=== PATIENT | female | born 1935 | race Caucasian/White ===

== ENCOUNTER 2017-04-19 09:00 | Inpatient (IN) | payer MEDICARE, OTHER ==
[2017-04-19] VITALS (19 sets, daily range): BP systolic 138–177; BP diastolic 64–85; PULSE 59–69; RESP 13–25; Ht 165.1 cm; Wt 68.6 kg
[~2017-04-19] VITALS: Ht 165.1 cm; Wt 68.6 kg
[~2017-04-19 09:00] MED LIST: ASCO-288 PO; ASPI81TA50 PO; BENA40TA41 PO; CARV6.2579 PO; CHOL100062 PO; CIPR500T4 PO; CRAN400C PO; CYAN500T46 PO; DOCU-144 PO; DOCU-159 PO; FERR-55 PO; FOLI-49 PO; GLIP-95 PO; MEMA10TA16 PO; MEVA40 PO; MTF1000T PO; MULT1TAB59 PO; ONDA4TAB35 PO; PANT40TA4 PO; PRAM0.1224 PO; PYRI50TA14 PO; RIVA3CAP2 PO; SITA100T8 PO; TRAM50TA2 PO; UBID100C24 PO
[2017-04-19] MEDS ORDERED: LIDOCAINE 1% (MDV) 20 ML INJ ONE (10:55)
[2017-04-19] MEDS ORDERED: HEPARIN 1000 UNITS/ML 10 ML INJ ONE (10:55)
[2017-04-19] MEDS ORDERED: FENTAnyl 50 MCG/ML VIAL ONE (10:56)
[2017-04-19] MEDS ORDERED: VERAPAMIL 5 MG INJ ONE (10:57)
[2017-04-19] MEDS ORDERED: MIDAZOLAM 1 MG/ML 2 ML INJ ONE (10:57)
[2017-04-19] MEDS ORDERED: NITROGLYCERIN (IC) 100 MCG/ML INJ ONE (10:57)
[2017-04-19] MEDS ORDERED: SOD CHLORIDE 0.9% 1,000 ML IV SCH (11:42)
--- NOTE | 2017-04-19 11:56 | OPR ---
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 Procedures Performed: 1)Left heart catheterization with selective left and right coronary angiography. Pre-operative Diagnosis:NSTEMI Post-operative Diagnosis:same, 3 vessel CAD with ostial LM Indications: Description of Procedure: After informed consent, the patient was brought to the cardiac catheterization lab. The procedure site was prepped and draped in usual manner. The patient was premedicated with versed 0.5mg. 2 mL lidocaine was injected into the left wrist. Next using the posterior wall technique, the 6/5 mauritian sheath was inserted into the left radial artery. Next using the JL3.0 and JR4, selective angiography of the left and right coronary arteries were obtained. The pigtail was then advanced into the ventricle and hemodynamics obtained. Left ventricle angiography was not obtained. Next all equipment was removed and hemostasis was obtained by TR band. Findings: Anatomy/Hemodynamics: Heavily calcified coronary arteries Left main:ostial 50-60%, distal 30-40% LAD: mild plaquing 20-30% Diagonal:luminal irregularities Circumflex:ostial 95-99%, mid 30% Obtuse marginal: RCA:mid calcified eccentric 95% PDA:luminal irregularities PLV:luminal irregularities LV angiography: not done due to mild CKD LV-Ao: no gradient LVEDP: 5 mmHg Contrast used: 60mL Fluoroscopy time:3.3 min Estimated blood loss<10 mL. Specimen: none Grafts/implants: none Complications: none Assessment: NSTEMI CAD with significant ostial LM, ostial Cx and mid RCA stenosis requiring CABG DM HTN CKD: Cr 1.2 Plan: -admit to tele (no ICU beds) -continue ASA, lipitor -metoprolol -check echo -Dr. Zurita will evaluate for CABG HANG MILLER Apr 19, 2017 11:56
--- NOTE | 2017-04-19 12:07 | CONS ---
Date/Time of Note Date/Time of Note DATE: 04/19/17 TIME: 12:06 Assessment/Plan Assessment/Plan Chief Complaint/Hosp Course NSTEMI CAD with significant ostial LM, ostial Cx and mid RCA stenosis requiring CABG DM HTN CKD: Cr 1.2 -admit to tele (no ICU beds) -continue ASA, lipitor -metoprolol -check echo -Dr. Zurita will evaluate for CABG Problems: Consultation Date/Type/Reason Admit Date/Time Initial Consult Date 24 HR Interval Summary Free Text/Dictation S/p cardiac cath. No issues. No chest pain. Exam/Review of Systems Vital Signs Vitals Vital Signs Date Time Temp Pulse Resp B/P Pulse Ox O2 Delivery O2 Flow Rate FiO2 04/19/17 09:21 99.1 62 14 153/71 95 Room Air Exam Constitutional: alert, oriented Psych: no complaints Head: atraumatic, normocephalic Eyes: nl conjunctiva ENMT: nl external ears & nose Neck: supple, No jvd Respiratory: clear to auscultation Cardiovascular: regular rate and rhythm, systolic murmur (2/6 DEBRA), No edema Gastrointestinal: non-tender, soft, No distended Neurological: nl mental status, nl speech Medications Medications Current Medications Miscellaneous Information HOLD all METFORMIN ... ONCE ONCE XX ; Start 04/19/17 at 12:00; Stop 04/19/17 at 12:01 Sodium Chloride (NS) 1,000 ml @ 75 mls/hr [id number] IV ; Start 04/19/17 at 11:42 ; Stop 04/19/17 at 16:41 Aspirin (Aspirin) 81 mg DAILY PO ; Start 04/20/17 at 09:00 Atorvastatin Calcium (Lipitor) 40 mg HS PO ; Start 04/19/17 at 21:00 Metoprolol Tartrate (Lopressor) 25 mg BID PO ; Start 04/19/17 at 21:00 BRENT SINHA Apr 19, 2017 12:07
[2017-04-19] MEDS ORDERED: ONDANSETRON (ODT) 4 MG TAB ODT PRN (13:00)
--- NOTE | 2017-04-19 14:19 | RADRPT ---
PROCEDURE: US Carotids. CLINICAL INDICATION: Preop coronary artery bypass graft TECHNIQUE: Multiple sonographic of the carotid bifurcation region and vertebral arteries were obta ined utilizing rodríguez scale, duplex and color-flow imaging. The images were reviewed on a PACS worksta tion. COMPARISON: None FINDINGS: Evaluation of the right carotid bifurcation region reveals mild calcific atherosclerotic disease. Evaluation of the left carotid bifurcation region reveals mild calcific atherosclerotic disease. There is antegrade flow within the vertebral arteries bilaterally. RIGHT CAROTID MEASUREMENTS: Common Carotid [id number] (cm/sec) Internal Carotid Artery - [id number] (cm/sec) Internal Carotid Artery - mid75 (cm/sec) Internal Carotid Artery - [id number] (cm/sec) Internal Carotid/Common Carotid0.9 LEFT CAROTID MEASUREMENTS: Common Carotid Artery 97 (cm/sec) Internal Carotid Artery - proximal 84 (cm/sec) Internal Carotid Artery - mid 107 (cm/sec) Internal Carotid Artery - distal 125 (cm/sec) Internal Carotid/Common Carotid 1.5 IMPRESSION: 1. No evidence of a significant stenosis of the right internal carotid artery. 2. Moderate stenosis ( 50 - 69% ) of the left internal carotid artery. 3. Normal antegrade flow in the vertebral arteries bilaterally. Measurement of carotid stenosis is based on peak systolic and diastolic velocity parameters that cor relate to the residual internal carotid diameter with [place] Symptomatic Carotid Endarterect chuck Trial (NASCET) based stenosis levels. Normal ( < 50% )- ICA peak systolic velocity < 125 cm/sec, ICA / CCA ratio < 2.0 Moderate stenosis ( 50 - 69% )- ICA peak systolic velocity 125 - 230 cm/sec, ICA / CCA ratio 2.0 - 4.0 Severe stenosis ( >70% )- ICA peak systolic velocity > 230 cm/sec, ICA / CCA ratio > 4.0 RPTAT:AAJJ Physician Stella Date Time Electronically viewed and signed by Physician Stella on 04/19/2017 14:18 /
[2017-04-19] MEDS ORDERED: DEXTROSE 50% 50 ML SYRINGE IV PRN ×2 (15:00)
[2017-04-19] MEDS ORDERED: GLUCOSE GEL 15 GRAM TUBE PO PRN ×2 (15:00)
[2017-04-19] MEDS ORDERED: GLUCOSE GEL 15 GRAM TUBE BUCCAL PRN (15:00)
[2017-04-19] MEDS ORDERED: GLUCAGON 1 MG INJ IM PRN (15:00)
[2017-04-19 16:13] LABS: BASOPHILS % 0.3 % (0.0-2.0); EOSINOPHILS # 0.2 10^3/ul (0.0-0.5); EOSINOPHILS % 2.9 % (0.0-7.0); HEMATOCRIT 29.9 % (37.0-47.0); HEMOGLOBIN 9.6 g/dl (12.0-16.0); LYMPHOCYTES # 2.1 10^3/ul (0.8-2.9); LYMPHOCYTES % 30.4 % (15.0-51.0); MEAN CORPUSCULAR HEMOGLOBIN 33.2 pg (29.0-33.0); MEAN CORPUSCULAR HGB CONC 32.1 g/dl (32.0-37.0); MEAN CORPUSCULAR VOLUME 103.5 fl (82.0-101.0); MEAN PLATELET VOLUME 10.4 fl (7.4-10.4); MONOCYTE # 0.6 10^3/ul (0.3-0.9); MONOCYTES % 9.3 % (0.0-11.0); NEUTROPHIL # 3.9 10^3/ul (1.6-7.5); NEUTROPHILS % 56.8 % (39.0-77.0); PLATELET COUNT 193 10^3/UL (140-415); RED BLOOD COUNT 2.89 10^6/ul (4.20-5.40); RED CELL DISTRIBUTION WIDTH 13.2 % (11.5-14.5); WHITE BLOOD COUNT 6.8 10^3/ul (4.8-10.8)
[2017-04-19 16:35] LABS: CALCIUM 8.7 mg/dl (8.4-10.2); CREATININE 0.82 mg/dl (0.44-1.00); POTASSIUM 4.2 mmol/L (3.5-5.1)
[2017-04-19] MEDS: INSULIN ASPART [NOVOLOG] 3 ML PEN SC SCH ×2 (16:49→21:00)
--- NOTE | 2017-04-19 16:53 | CONS ---
Date/Time of Note Date/Time of Note DATE: 04/19/17 TIME: 16:49 Assessment/Plan Assessment/Plan Additional Assessment/Plan 82 year old frail lady with dementia and very calcified coronaries. She does not ambulate much either. Considering her age and demential and very calcified vessels I would recommend medical management. Thank you for the referral. Consultation Date/Type/Reason Admit Date/Time Date of Consultation: Apr 19, 2017 Reason for Consultation evaluate for cabg Referring Provider: BRENT SINHA Hx of Present Illness 82 year old female with dementia, admitted with chest pain and NSTEMI. Had cath today showing LM stenosis and 3V CAD. Asked to see regarding CABG Subjective hx not possible: pt non-verbal Psychological: no complaints Social History Smoking Status: Former smoker Exam/Review of Systems Vital Signs Vitals Vital Signs Date Time Temp Pulse Resp B/P Pulse Ox O2 Delivery O2 Flow Rate FiO2 04/19/17 16:11 60 04/19/17 14:57 97.6 18 165/71 98 Room Air Exam frail 82 year old Constitutional: oriented, No alert, No distress, No frail, No non-verbal, No obese, No other, No well developed Head: No atraumatic, No hematomas, No lacerations, No normocephalic, No other Eyes: No EOMI, No PERRL, No fundi, disc, No icteric, No nl conjunctiva, No nl lids, No nl sclera, No other ENMT: No intubated, No mucosa pink and moist, No nl external ears & nose, No nl lips & teeth, No nl nasal mucosa & septum, No other, No tympanic membranes Neck: No bruits, No jvd, No masses, No non-tender, No nuchal rigidity, No other , No supple, No thyromegaly Respiratory: No clear to auscultation, No congested cough, No crackles/rales, No diminished breath sounds, No intercostal retraction, No labored breathing, No normal air movement, No other, No respirations, No tactile fremitus, No wheezing Cardiovascular: No S3, No S4, No bruits, No diastolic murmur, No edema, No gallop, No irregular rhythm, No jugular venous distention (JVD), No murmurs/ extra sounds, No nl pulses, No other, No regular rate and rhythm, No rub, No systolic murmur Gastrointestinal: No ascites, No bowel sounds, No distended, No firm, No hepatomegaly, No mass, No nl liver, spleen, No non-tender, No other, No rebound or guarding, No soft, No splenomegaly, No surgical scars, No tender Musculoskeletal: No joint tenderness, No muscle tone, No muscle weakness, No nl extremities to inspection, No nl gait and stance, No other, No range of motion, No spine non-tender, No swelling Extremities: No calf tenderness, No clubbing, No cyanosis, No edema, No normal pulses, No other, No palpable cord, No pitting pedal edema, No tenderness Neurological: No RF MICROWAVE ENGINEER II-XII intact, No DTR's symmetric, No confused, No focal weakness, No lethargic, No nl mental status, No nl speech, No nl strength, No numbness, No other, No reflexes, No unresponsive Skin: No diaphoresis, No ecchymosis, No laceration, No nl turgor, No other, No puncture, No rash or lesions Lymph: No enlarged, No nl lymph nodes, No nontender, No other Results Result Diagram: 04/19/17 1549 04/19/17 1549 Results 24 hrs Laboratory Tests Test 04/19/17 12:48 04/19/17 15:49 Bedside Glucose 150 White Blood Count 6.8 Red Blood Count 2.89 L Hemoglobin 9.6 L Hematocrit 29.9 L Mean Corpuscular Volume 103.5 H Mean Corpuscular Hemoglobin 33.2 H Mean Corpuscular Hemoglobin Concent 32.1 Red Cell Distribution Width 13.2 Platelet Count 193 Mean Platelet Volume 10.4 # Neutrophils % 56.8 Lymphocytes % 30.4 Monocytes % 9.3 Eosinophils % 2.9 Basophils % 0.3 Nucleated Red Blood Cells % 0.0 Neutrophils # 3.9 Lymphocytes # 2.1 Monocytes # 0.6 Eosinophils # 0.2 Basophils # 0.0 Nucleated Red Blood Cells # 0.0 Sodium Level 139 Potassium Level 4.2 Chloride Level 107 Carbon Dioxide Level 26 Anion Gap 10 Blood Urea Nitrogen 16 Creatinine 0.82 Glucose Level 118 Calcium Level 8.7 Medications Medications Current Medications Aspirin (Aspirin) 81 mg DAILY PO ; Start 04/20/17 at 09:00 Atorvastatin Calcium (Lipitor) 40 mg HS PO ; Start 04/19/17 at 21:00 Metoprolol Tartrate (Lopressor) 25 mg BID PO ; Start 04/19/17 at 21:00 Diagnostic Test (Pha) (Accu-Chek) 1 ea 02 XX ; Start 04/20/17 at 02:00 Ascorbic Acid (Vitamin C) 500 mg DAILY PO ; Start 04/20/17 at 09:00 Cholecalciferol (Vitamin D) 2,000 unit DAILY PO ; Start 04/20/17 at 09:00 Cyanocobalamin (Vitamin B12) 1,000 mcg DAILY PO ; Start 04/20/17 at 09:00 Docusate Sodium (Colace) 100 mg DAILY PO ; Start 04/20/17 at 09:00 Ferrous Sulfate (Ferrous Sulfate (Ec)) 325 mg TID PO ; Start 04/19/17 at 21:00 Folic Acid (Folic Acid) 1 mg DAILY PO ; Start 04/20/17 at 09:00 Memantine (Namenda) 10 mg BID PO ; Start 04/19/17 at 21:00 Multivitamins Therapeutic (Theragran) 1 tab DAILY PO ; Start 04/20/17 at 09:00 Ondansetron HCl (Zofran Odt) 4 mg Q4H PRN ODT NAUSEA AND/OR VOMITING; Start at 13:00 Pantoprazole (Protonix Tab) 40 mg BID@06,18 PO ; Start 04/19/17 at 18:00 Pramipexole (Mirapex) 0.125 mg TID PO ; Start 04/19/17 at 21:00 Pyridoxine HCl (Vitamin B6) 50 mg DAILY PO ; Start 04/20/17 at 09:00 Rivastigmine Tartrate (Exelon) 3 mg BID PO ; Start 04/19/17 at 21:00 Tramadol HCl (Ultram) 50 mg Q8H PRN PO PAIN; Start 04/19/17 at 13:00 Linagliptin (Tradjenta) 5 mg DAILY PO ; Start 04/20/17 at 09:00 Miscellaneous Information 1 ea NOTE XX ; Start 04/19/17 at 15:00 Glucose (Glutose) 15 gm Q15M PRN PO DECREASED GLUCOSE; Start 04/19/17 at 15:00 Glucose (Glutose) 22.5 gm Q15M PRN PO DECREASED GLUCOSE; Start 04/19/17 at 15: 00 Dextrose (D50w Syringe) 25 ml Q15M PRN IV DECREASED GLUCOSE; Start 04/19/17 at 15:00 Dextrose (D50w Syringe) 50 ml Q15M PRN IV DECREASED GLUCOSE; Start 04/19/17 at 15:00 Glucagon (Glucagen) 1 mg Q15M PRN IM DECREASED GLUCOSE; Start 04/19/17 at 15:00 Glucose (Glutose) 15 gm Q15M PRN BUCCAL DECREASED GLUCOSE; Start 04/19/17 at 15 :00 EMILY TORREZ MD Apr 19, 2017 16:52
[2017-04-19 17:46] LABS: ADD UMIC YES; UR ASCORBIC ACID NEGATIVE (NEGATIVE); UR BACTERIA MODERATE /HPF (NONE SEEN); UR BILIRUBIN (Dip) NEGATIVE (NEGATIVE); UR BLOOD (Dip) 1+ mg/dL (NEGATIVE); UR CLARITY CLOUDY (CLEAR); UR COLOR YELLOW (YELLOW); UR GLUCOSE (Dip) NEGATIVE (NEGATIVE); UR KETONES (Dip) NEGATIVE (NEGATIVE); UR LEUKOCYTE ESTERASE (Dip) 3+ Leu/ul (NEGATIVE); UR NITRITE (Dip) NEGATIVE (NEGATIVE); UR RBC 15 /HPF (0-5); UR SPECIFIC GRAVITY (Dip) 1.018 (1.003-1.030); UR TOTAL PROTEIN (Dip) 1+ mg/dl (NEGATIVE); UR UROBILINOGEN (Dip) NEGATIVE (NEGATIVE)
--- NOTE | 2017-04-19 18:32 | HP ---
DATE OF ADMISSION: 04/19/2017 CHIEF COMPLAINT: Chest pain. HISTORY OF PRESENT ILLNESS: This is an 82-year-old female with a past medical history of coronary a rtery disease status post PCI, history of hypertension, diabetes, COPD, who presented to [facility] Emergency Room with chest pain. The patient had chest pain described left-sided, severe with occasional radiation. The patient had a chest x-ray which showed no acute findings. She was s ubsequently transferred to [facility] to undergo cardiac catheterization. Cardiac catheterization showed significant lesions in the left main in the mid RCA. The patient had no int ervention performed and is pending evaluation by Dr. Lambert for CABG. Upon my evaluation of the patient at this time, the patient is currently stable. No fevers, chills, nausea, vomiting. PAST MEDICAL HISTORY: History of coronary artery disease, diabetes, hypertension, COPD. FAMILY HISTORY: Noncontributory. SOCIAL HISTORY: Does not drink, smoke or do drugs actively. MEDICATIONS: The patient's medication reviewed. PAST SURGICAL HISTORY: Status post PCI. ALLERGIES: NONE. MEDICATIONS: Have been reviewed and reconciled. REVIEW OF SYSTEMS: A 14-point review of systems was conducted. Pertinent positives in HPI, otherwi se negative. PHYSICAL EXAMINATION: VITAL SIGNS: Blood pressure 147/82, respirations 14, pulse 62, temperature 98.6. HEENT: Head is normocephalic. NECK: Supple. HEART: Regular rate. LUNGS: Show diminished breath sounds at base. ABDOMEN: Soft, nontender to palpation without rebound or guarding. EXTREMITIES: Negative for clubbing, cyanosis, edema. DERMATOLOGIC: No rashes. MUSCULOSKELETAL: No joint effusions. NEUROLOGIC: No change in exam. MEDICATIONS: The patient's medications have been reviewed. LABORATORY DATA: Pending. ASSESSMENT AND PLAN: This is an 82-year-old female: 1. Coronary artery disease status post cardiac catheterization. The patient has significant lesion s of the left main. Pending CT surgery evaluation by Dr. Zurita. We will otherwise continue current medical management. 2. Diabetes. Continue Accu-Cheks and sliding-scale insulin. 3. Hypertension. Continue current blood pressure regimen. 4. History of chronic obstructive pulmonary disease. Continue to monitor. We will give nebulizers as needed. 5. Cognitive decline, dementia. Continue Namenda. 6. Exelon patch. 7. Anemia. Continue to monitor hemoglobin and hematocrit levels. Continue ferrous sulfate. 8. Chronic kidney disease. Continue current treatment plan, supportive care, renally dose all meds . Time spent was 25 minutes [id number] time with the patient. The patient is FULL CODE. Dictated By: JAQUI FERRER/IVETTE Conf#: [id number] DID#: [id number]
--- NOTE | 2017-04-19 18:36 | RADRPT ---
Echocardiogram Report Patient Name: CRISTOBAL ARAUJO Gender: Female Date: 1935 Study Date: 19-Apr-2017 Dance Coach: Karie PARRISH Location: PACU Ref. Physician: BRENT MILLER Quality: Adequate Procedures: Transthoracic echocardiogram with complete 2D, M-Mode, and doppler examination. Indications: NSTEMI. 2D/M Mode Doppler Measurement Value Normal Ranges Measurement Value Normal Ranges LVIDd 2D 3.3 3.5 - 5.6 cm AV Peak Addison 1.5 m/sec LVIDs 2D 2.3 2.1 - 4.1 cm AV Peak PG 9.0 mmHg FS 2D 31.0 % LVOT Peak Addison 1.0 m/sec LVPWd 2D 1.3 0.6 - 1.1 cm LVOT Peak PG 4.0 mmHg IVSd 2D 1.3 0.6 - 1.1 cm MV E Peak Addison 0.5 m/sec IVS/LVPW 2D 1.0 MV A Peak Addison 0.9 m/sec AoR Diam 2D 2.3 2.0 - 3.7 cm MV E/A 0.5 LA/Ao 2D 1 0 - 1 MV Decel Time 285 msec EDV 2D 37.6 cm3 MV E/A 0.5 ESV 2D 12.3 cm3 LA Dimen 2D 3.1 2.3 - 4.0 cm Findings Left Ventricle: Normal left ventricular systolic function. Normal left ventricular cavity size. Mild concentric left ventricular hypertrophy. Ejection fraction is visually estimated at 55 %. Tissue Doppler/Mitral Doppler indices are consistent with impaired relaxation (Stage I diastolic dysfunction). Right Ventricle: Normal right ventricular size. Normal right ventricular systolic function. Left Atrium: There is mild enlargement of left atrium. Right Atrium: The right atrium is normal in size. Mitral Valve: Mild mitral annular calcification. Trace mitral regurgitation. Aortic Valve: No significant aortic stenosis or insufficiency. Aortic cusps appear mildly calcified. Trace aortic valve regurgitation. Tricuspid Valve: Normal appearance of the tricuspid valve. Unable to obtain RVSP due to minimal presence of tricuspid regurgitation. There is trace tricuspid regurgitation. Pulmonic Valve: Pulmonic valve not well visualized. There is trace pulmonic regurgitation. Pericardium: Normal pericardium with no significant pericardial effusion. Aorta: Normal aortic root. IVC: Normal size and normal respiratory collapse consistent with normal right atrial pressure. Conclusions 1.Normal left ventricular systolic function. Normal left ventricular cavity size. Mild concentric left ventricular hypertrophy. Ejection fraction is visually estimated at 55 %. Tissue Doppler/Mitral Doppler indices are consistent with impaired relaxation (Stage I diastolic dysfunction). 2.No significant valvular stenosis or regurgitation seen. 3.Unable to obtain RVSP due to minimal presence of tricuspid regurgitation. There is trace tricuspid regurgitation. Normal size and normal respiratory collapse consistent with normal right atrial pressure. Electronically Signed By: Brent Miller 19-Apr-2017 18:35:59 -0700 Patient Name: CRISTOBAL ARAUJO Study Date: 19-Apr-2017 [id number]
[2017-04-19] MEDS: PANTOPRAZOLE (EC) 40 MG TAB PO SCH (19:09)
[2017-04-19] MEDS: MEMANTINE 10 MG TAB PO SCH (22:15)
[2017-04-19] MEDS: METOPROLOL 25 MG TAB PO SCH (22:15)
[2017-04-19] MEDS: PRAMIPEXOLE 0.125 MG TAB PO SCH (22:15)
[2017-04-19] MEDS: FERROUS SULFATE (EC) 325 MG TAB PO SCH (22:15)
[2017-04-19] MEDS: ATORVASTATIN 40 MG TAB PO SCH (22:15)
[2017-04-19] MEDS: RIVASTIGMINE 1.5 MG CAP PO SCH (22:16)
[2017-04-19] MEDS: traMADol 50 MG TAB PO PRN (22:20)
[2017-04-20] VITALS (11 sets, daily range): BP systolic 136–166; BP diastolic 63–70; PULSE 59–64; RESP 17–19
[2017-04-20] MEDS: ACCU-CHEK XX SCH (02:00)
[2017-04-20] MEDS: PANTOPRAZOLE (EC) 40 MG TAB PO SCH ×2 (05:20→18:26)
[2017-04-20 07:38] LABS: BASOPHILS % 0.4 % (0.0-2.0); EOSINOPHILS # 0.2 10^3/ul (0.0-0.5); EOSINOPHILS % 3.1 % (0.0-7.0); HEMATOCRIT 28.6 % (37.0-47.0); HEMOGLOBIN 9.4 g/dl (12.0-16.0); LYMPHOCYTES # 2.2 10^3/ul (0.8-2.9); LYMPHOCYTES % 28.1 % (15.0-51.0); MEAN CORPUSCULAR HEMOGLOBIN 33.7 pg (29.0-33.0); MEAN CORPUSCULAR HGB CONC 32.9 g/dl (32.0-37.0); MEAN CORPUSCULAR VOLUME 102.5 fl (82.0-101.0); MEAN PLATELET VOLUME 10.3 fl (7.4-10.4); MONOCYTE # 1.1 10^3/ul (0.3-0.9); MONOCYTES % 13.4 % (0.0-11.0); NEUTROPHIL # 4.3 10^3/ul (1.6-7.5); NEUTROPHILS % 54.9 % (39.0-77.0); PLATELET COUNT 181 10^3/UL (140-415); RED BLOOD COUNT 2.79 10^6/ul (4.20-5.40); RED CELL DISTRIBUTION WIDTH 13.2 % (11.5-14.5); WHITE BLOOD COUNT 7.8 10^3/ul (4.8-10.8)
--- NOTE | 2017-04-20 08:02 | PN ---
Date/Time of Note Date/Time of Note DATE: 04/20/17 TIME: 08:00 Assessment/Plan VTE Prophylaxis VTE Prophylaxis Intervention: SCD's Lines/Catheters IV Catheter Type (from Nrs): Saline Lock Assessment/Plan Assessment/Plan NSTEMI CAD with significant ostial LM, ostial Cx and mid RCA stenosis requiring CABG DM HTN CKD: Cr 1.2 ANEMAI OBS -evaluated by CTS > reccomended medical therapy -will add ACEI -will discuss with her daughter -most sousa will treat medcailly and only consider high risk PCI with assist device at a tertiary facility -possible d/c planning in AM if all stable Subjective 24 Hr Interval Summary Free Text/Dictation The patient with no chest pain and no sob - appreciate dr sin's care Exam/Review of Systems Vital Signs Vitals Vital Signs Date Time Temp Pulse Resp B/P Pulse Ox O2 Delivery O2 Flow Rate FiO2 04/20/17 07:21 98.9 65 18 143/65 97 04/19/17 14:57 Room Air Intake and Output 04/19/17 04/19/17 04/20/17 15:00 23:00 07:00 Intake Total 100 ml 700 ml Output Total 450 ml Balance -350 ml 700 ml Results Result Diagram: 04/20/17 0718 04/19/17 1549 Results 24 hrs Laboratory Tests Test 04/19/17 12:48 04/19/17 15:49 04/19/17 16:00 04/19/17 16:48 Bedside Glucose 150 108 White Blood Count 6.8 Red Blood Count 2.89 L Hemoglobin 9.6 L Hematocrit 29.9 L Mean Corpuscular Volume 103.5 H Mean Corpuscular Hemoglobin 33.2 H Mean Corpuscular Hemoglobin Concent 32.1 Red Cell Distribution Width 13.2 Platelet Count 193 Mean Platelet Volume 10.4 # Neutrophils % 56.8 Lymphocytes % 30.4 Monocytes % 9.3 Eosinophils % 2.9 Basophils % 0.3 Nucleated Red Blood Cells % 0.0 Neutrophils # 3.9 Lymphocytes # 2.1 Monocytes # 0.6 Eosinophils # 0.2 Basophils # 0.0 Nucleated Red Blood Cells # 0.0 Sodium Level 139 Potassium Level 4.2 Chloride Level 107 Carbon Dioxide Level 26 Anion Gap 10 Blood Urea Nitrogen 16 Creatinine 0.82 Glucose Level 118 Calcium Level 8.7 Urine Color YELLOW Urine Clarity CLOUDY A Urine pH 6.0 Urine Specific Dorena 1.018 Urine Ketones NEGATIVE Urine Nitrite NEGATIVE Urine Bilirubin NEGATIVE Urine Urobilinogen NEGATIVE Urine Leukocyte Esterase 3+ H Urine Microscopic RBC 15 H Urine Microscopic WBC 149 H Urine Bacteria MODERATE Urine Hemoglobin 1+ H Urine Random Creatinine 23.63 Urine Random Sodium 123 H Urine Glucose NEGATIVE Urine Total Protein 46.0 H Test 04/19/17 22:12 04/20/17 07:18 Bedside Glucose 175 White Blood Count 7.8 Red Blood Count 2.79 L Hemoglobin 9.4 L Hematocrit 28.6 L Mean Corpuscular Volume 102.5 H Mean Corpuscular Hemoglobin 33.7 H Mean Corpuscular Hemoglobin Concent 32.9 Red Cell Distribution Width 13.2 Platelet Count 181 Mean Platelet Volume 10.3 Neutrophils % 54.9 Lymphocytes % 28.1 Monocytes % 13.4 H Eosinophils % 3.1 Basophils % 0.4 Nucleated Red Blood Cells % 0.0 Neutrophils # 4.3 Lymphocytes # 2.2 Monocytes # 1.1 H Eosinophils # 0.2 Basophils # 0.0 Nucleated Red Blood Cells # 0.0 Medications Medications Current Medications Aspirin (Aspirin) 81 mg DAILY PO ; Start 04/20/17 at 09:00 Atorvastatin Calcium (Lipitor) 40 mg HS PO Last administered on 04/19/17 22:15 ; Admin Dose 40 MG; Start 04/19/17 at 21:00 Metoprolol Tartrate (Lopressor) 25 mg BID PO Last administered on 04/19/17 22: 15; Admin Dose 25 MG; Start 04/19/17 at 21:00 Diagnostic Test (Pha) (Accu-Chek) 1 ea 02 XX ; Start 04/20/17 at 02:00 Ascorbic Acid (Vitamin C) 500 mg DAILY PO ; Start 04/20/17 at 09:00 Cholecalciferol (Vitamin D) 2,000 unit DAILY PO ; Start 04/20/17 at 09:00 Cyanocobalamin (Vitamin B12) 1,000 mcg DAILY PO ; Start 04/20/17 at 09:00 Docusate Sodium (Colace) 100 mg DAILY PO ; Start 04/20/17 at 09:00 Ferrous Sulfate (Ferrous Sulfate (Ec)) 325 mg TID PO Last administered on 22:15; Admin Dose 325 MG; Start 04/19/17 at 21:00 Folic Acid (Folic Acid) 1 mg DAILY PO ; Start 04/20/17 at 09:00 Memantine (Namenda) 10 mg BID PO Last administered on 04/19/17 22:15; Admin Dose 10 MG; Start 04/19/17 at 21:00 Multivitamins Therapeutic (Theragran) 1 tab DAILY PO ; Start 04/20/17 at 09:00 Ondansetron HCl (Zofran Odt) 4 mg Q4H PRN ODT NAUSEA AND/OR VOMITING; Start at 13:00 Pantoprazole (Protonix Tab) 40 mg BID@,18 PO Last administered on 04/20/17 05:20; Admin Dose 40 MG; Start 04/19/17 at 18:00 Pramipexole (Mirapex) 0.125 mg TID PO Last administered on 04/19/17 22:15; Admin Dose 0.125 MG; Start 04/19/17 at 21:00 Pyridoxine HCl (Vitamin B6) 50 mg DAILY PO ; Start 04/20/17 at 09:00 Rivastigmine Tartrate (Exelon) 3 mg BID PO Last administered on 04/19/17 22:16 ; Admin Dose 3 MG; Start 04/19/17 at 21:00 Tramadol HCl (Ultram) 50 mg Q8H PRN PO PAIN Last administered on 04/19/17 22: 20; Admin Dose 50 MG; Start 04/19/17 at 13:00 Linagliptin (Tradjenta) 5 mg DAILY PO ; Start 04/20/17 at 09:00 Miscellaneous Information 1 ea NOTE XX ; Start 04/19/17 at 15:00 Glucose (Glutose) 15 gm Q15M PRN PO DECREASED GLUCOSE; Start 04/19/17 at 15:00 Glucose (Glutose) 22.5 gm Q15M PRN PO DECREASED GLUCOSE; Start 04/19/17 at 15: 00 Dextrose (D50w Syringe) 25 ml Q15M PRN IV DECREASED GLUCOSE; Start 04/19/17 at 15:00 Dextrose (D50w Syringe) 50 ml Q15M PRN IV DECREASED GLUCOSE; Start 04/19/17 at 15:00 Glucagon (Glucagen) 1 mg Q15M PRN IM DECREASED GLUCOSE; Start 04/19/17 at 15:00 Glucose (Glutose) 15 gm Q15M PRN BUCCAL DECREASED GLUCOSE; Start 04/19/17 at 15 :00 Lisinopril (Zestril) 5 mg DAILY PO ; Start 04/20/17 at 09:00; Status UNV REUBEN GERONIMO MD Apr 20, 2017 08:02
[2017-04-20 08:07] LABS: CALCIUM 8.8 mg/dl (8.4-10.2); CREATININE 0.88 mg/dl (0.44-1.00); MAGNESIUM 1.4 mg/dl (1.7-2.5); PHOSPHORUS 3.4 mg/dl (2.5-4.9); POTASSIUM 4.5 mmol/L (3.5-5.1)
[2017-04-20] MEDS ORDERED: MAGNESIUM OXIDE 400 MG TAB PO ONE (09:00)
[2017-04-20] MEDS ORDERED: CRANBERRY 400 MG PO SCH (09:00)
[2017-04-20] MEDS ORDERED: NON-FORMULARY/PATIENT OWN MED (Ubidecarenone (Coq-10) 100 MG) PO SCH (09:00)
[2017-04-20] MEDS: DOCUSATE SODIUM 100 MG CAP PO SCH (09:26)
[2017-04-20] MEDS: RIVASTIGMINE 1.5 MG CAP PO SCH ×2 (09:26→21:19)
[2017-04-20] MEDS: PYRIDOXINE 50 MG TAB PO SCH (09:26)
[2017-04-20] MEDS: FOLIC ACID 1 MG TAB PO SCH (09:27)
[2017-04-20] MEDS: PRAMIPEXOLE 0.125 MG TAB PO SCH ×3 (09:27→21:19)
[2017-04-20] MEDS: MEMANTINE 10 MG TAB PO SCH ×2 (09:27→21:19)
[2017-04-20] MEDS: MULTIVITAMINS THERAPEUTIC TAB PO SCH (09:27)
[2017-04-20] MEDS: CHOLECALCIFEROL 1,000 UNIT TAB PO SCH (09:27)
[2017-04-20] MEDS: ASCORBIC ACID 500 MG TAB PO SCH (09:27)
[2017-04-20] MEDS: ASPIRIN 81 MG TAB PO SCH (09:27)
[2017-04-20] MEDS: LISINOPRIL 5 MG TAB PO SCH (09:27)
[2017-04-20] MEDS: CYANOCOBALAMIN 500 MCG TAB PO SCH (09:27)
[2017-04-20] MEDS: FERROUS SULFATE (EC) 325 MG TAB PO SCH ×3 (09:28→21:19)
[2017-04-20] MEDS: LINAGLIPTIN 5 MG TABLET PO SCH (09:28)
[2017-04-20] MEDS: METOPROLOL 25 MG TAB PO SCH ×2 (09:28→21:20)
[2017-04-20] MEDS: INSULIN ASPART [NOVOLOG] 3 ML PEN SC SCH ×4 (09:43→21:00)
--- NOTE | 2017-04-20 14:19 | PN ---
DATE: 04/20/2017 SUBJECTIVE: The patient was seen by Dr. Zurita who given the patient's comorbidities and advanced ag e, recommended medical management. No other events noted. No hemoptysis, hematemesis or hematochez ia. OBJECTIVE: VITAL SIGNS: Blood pressure is 143/65, temperature 98.9, pulse 65, respirations 18. HEENT: Head is normocephalic. NECK: Supple. HEART: Regular rate. LUNGS: Show diminished breath sounds at the base. ABDOMEN: Soft, nontender to palpation. No rebound or guarding. EXTREMITIES: Negative for clubbing, cyanosis, edema. DERMATOLOGIC: No rashes. MUSCULOSKELETAL: No joint effusions. NEUROLOGIC: No change in exam. MEDICATIONS: Have been reviewed. LABORATORY DATA: Has been reviewed, within normal limits. Magnesium 1.4. White count 7.8, hemoglo bin 9.4, platelet count is 181. ASSESSMENT AND PLAN: 1. Coronary artery disease status post cardiac catheterization. The patient was seen by CT surgery , no plans for coronary artery bypass graft at this time. Continue medical management and follow up with Cardiology. 2. Diabetes. Continue current insulin regimen. 3. Hypertension. Continue current blood pressure regimen. 4. History of chronic obstructive pulmonary disease. Continue to monitor. 5. Cognitive decline, dementia. Continue Namenda and Exelon patch. 6. Anemia. Continue to monitor hemoglobin and hematocrit levels. 7. Chronic kidney disease. Renal function is currently stable. Continue to monitor. 8. Hypomagnesemia. Replete with magnesium sulfate. Dictated By: JAQUI FERRER/IVETTE Conf#: [id number] DID#: [id number]
[2017-04-20] MEDS ORDERED: MAGNESIUM SULFATE 1 GM/D5W 100 ML IVPB ONE (18:00)
[2017-04-20] MEDS: ATORVASTATIN 40 MG TAB PO SCH (21:19)
[2017-04-21] VITALS (12 sets, daily range): BP systolic 132–159; BP diastolic 61–70; PULSE 62–67; RESP 18–20
[2017-04-21] MEDS: ACCU-CHEK XX SCH (02:00)
[2017-04-21] MEDS: PANTOPRAZOLE (EC) 40 MG TAB PO SCH ×2 (06:15→16:38)
[2017-04-21 07:40] LABS: HEMATOCRIT 28.3 % (37.0-47.0); HEMOGLOBIN 9.2 g/dl (12.0-16.0); MEAN CORPUSCULAR HEMOGLOBIN 32.6 pg (29.0-33.0); MEAN CORPUSCULAR HGB CONC 32.5 g/dl (32.0-37.0); MEAN CORPUSCULAR VOLUME 100.4 fl (82.0-101.0); MEAN PLATELET VOLUME 11.1 fl (7.4-10.4); PLATELET COUNT 182 10^3/UL (140-415); RED BLOOD COUNT 2.82 10^6/ul (4.20-5.40); RED CELL DISTRIBUTION WIDTH 13.3 % (11.5-14.5); WHITE BLOOD COUNT 8.2 10^3/ul (4.8-10.8)
[2017-04-21] MEDS: INSULIN ASPART [NOVOLOG] 3 ML PEN SC SCH ×4 (07:45→21:15)
[2017-04-21 07:53] LABS: POSITIVE DIFF @See below
[2017-04-21 08:01] LABS: CALCIUM 8.8 mg/dl (8.4-10.2); MAGNESIUM 1.7 mg/dl (1.7-2.5); PHOSPHORUS 3.8 mg/dl (2.5-4.9); POTASSIUM 4.2 mmol/L (3.5-5.1)
[2017-04-21] MEDS: PRAMIPEXOLE 0.125 MG TAB PO SCH ×3 (08:34→21:18)
[2017-04-21] MEDS: PYRIDOXINE 50 MG TAB PO SCH (08:34)
[2017-04-21] MEDS: MULTIVITAMINS THERAPEUTIC TAB PO SCH (08:34)
[2017-04-21] MEDS: MEMANTINE 10 MG TAB PO SCH ×2 (08:34→21:11)
[2017-04-21] MEDS: FERROUS SULFATE (EC) 325 MG TAB PO SCH ×3 (08:34→21:10)
[2017-04-21] MEDS: ASPIRIN 81 MG TAB PO SCH (08:34)
[2017-04-21] MEDS: RIVASTIGMINE 1.5 MG CAP PO SCH ×2 (08:34→21:10)
[2017-04-21] MEDS: DOCUSATE SODIUM 100 MG CAP PO SCH (08:34)
[2017-04-21] MEDS: FOLIC ACID 1 MG TAB PO SCH (08:34)
[2017-04-21] MEDS: CYANOCOBALAMIN 500 MCG TAB PO SCH (08:34)
[2017-04-21] MEDS: METOPROLOL 25 MG TAB PO SCH ×2 (08:35→21:11)
[2017-04-21] MEDS: ASCORBIC ACID 500 MG TAB PO SCH (08:35)
[2017-04-21] MEDS: CHOLECALCIFEROL 1,000 UNIT TAB PO SCH (08:35)
[2017-04-21] MEDS: LISINOPRIL 5 MG TAB PO SCH (08:35)
[2017-04-21] MEDS: LINAGLIPTIN 5 MG TABLET PO SCH (08:35)
[2017-04-21 08:37] LABS: EOSINOPHILS % (M) 3 % (0-7); MONOCYTES % (M) 13 % (0-11); OVALOCYTES 1+ (0-0); PLASMAC%(M) 1 % (0); PLATELET ESTIMATE NORMAL; POLYCHROMASIA 1+ (0-0)
--- NOTE | 2017-04-21 09:43 | PN ---
Date/Time of Note Date/Time of Note DATE: 04/21/17 TIME: 09:42 Assessment/Plan VTE Prophylaxis VTE Prophylaxis Intervention: other Lines/Catheters [facility] Saline Lock Assessment/Plan Chief Complaint/Hosp Course SUBJECTIVE: The patient was seen by Dr. Zurita who given the patient's comorbidities and advanced age, recommended medical management. No other events noted. No hemoptysis, hematemesis or hematochezia. events were reviewed complaining of severe weakness OBJECTIVE: HEENT: Head is normocephalic. NECK: Supple. HEART: Regular rate. LUNGS: Show diminished breath sounds at the base. ABDOMEN: Soft, nontender to palpation. No rebound or guarding. EXTREMITIES: Negative for clubbing, cyanosis, edema. DERMATOLOGIC: No rashes. MUSCULOSKELETAL: No joint effusions. NEUROLOGIC: No change in exam. MEDICATIONS: Have been reviewed. ASSESSMENT AND PLAN: 1. Coronary artery disease status post cardiac catheterization. The patient was seen by CT surgery, no plans for coronary artery bypass graft at this time. Continue medical management and follow up with Cardiology. 2. Diabetes. Continue current insulin regimen. 3. Hypertension. Continue current blood pressure regimen. 4. History of chronic obstructive pulmonary disease. Continue to monitor. 5. Cognitive decline, dementia. Continue Namenda and Exelon patch. 6. Anemia. Continue to monitor hemoglobin and hematocrit levels. 7. Chronic kidney disease. Renal function is currently stable. Continue to monitor. will consult PT/OT for debility Problems: Exam/Review of Systems Vital Signs Vitals Vital Signs Date Time Temp Pulse Resp B/P Pulse Ox O2 Delivery O2 Flow Rate FiO2 04/21/17 08:00 63 04/21/17 07:15 98.6 18 144/65 94 04/19/17 14:57 Room Air Intake and Output 04/20/17 04/20/17 04/21/17 15:00 23:00 07:00 Intake Total 650 ml 450 ml Output Total 550 ml Balance 100 ml 450 ml Results Result Diagram: 04/21/17 0634 04/21/17 0634 Results 24 hrs Laboratory Tests Test 04/20/17 12:54 04/20/17 18:11 04/20/17 20:16 04/21/17 06:34 Bedside Glucose 160 130 154 White Blood Count 8.2 Red Blood Count 2.82 L Hemoglobin 9.2 L Hematocrit 28.3 L Mean Corpuscular Volume 100.4 Mean Corpuscular Hemoglobin 32.6 Mean Corpuscular Hemoglobin Concent 32.5 Red Cell Distribution Width 13.3 Platelet Count 182 Mean Platelet Volume 11.1 H Neutrophils % Segmented Neutrophils % (Manual) 51 Band Neutrophils % (Manual) 4 Lymphocytes % Lymphocytes % (Manual) 28 Monocytes % Monocytes % (Manual) 13 H Eosinophils % Eosinophils % (Manual) 3 Basophils % Plasma Cells % (manual) 1 Nucleated Red Blood Cells % 0.0 Neutrophils # Neutrophils # (Manual) 4.2 Band Neutrophils # 0.3 Absolute Lymphocytes (Manual) 2.2 Lymphocytes # Monocytes # Absolute Monocytes (Manual) 1.0 H Eosinophils # Basophils # Plasma Cells # (manual) 0.0 Nucleated Red Blood Cells # Platelet Estimate NORMAL Polychromasia 1+ Ovalocytes 1+ Sodium Level 135 Potassium Level 4.2 Chloride Level 101 Carbon Dioxide Level 25 Anion Gap 13 Blood Urea Nitrogen 16 Creatinine 1.00 Glucose Level 192 Calcium Level 8.8 Phosphorus Level 3.8 Magnesium Level 1.7 Test 04/21/17 07:34 Bedside Glucose 228 H Medications Medications Current Medications Aspirin (Aspirin) 81 mg DAILY PO Last administered on 04/21/17 08:34; Admin Dose 81 MG; Start 04/20/17 at 09:00 Atorvastatin Calcium (Lipitor) 40 mg HS PO Last administered on 04/20/17 21:19 ; Admin Dose 40 MG; Start 04/19/17 at 21:00 Metoprolol Tartrate (Lopressor) 25 mg BID PO Last administered on 04/21/17 08: 35; Admin Dose 25 MG; Start 04/19/17 at 21:00 Diagnostic Test (Pha) (Accu-Chek) 1 ea 02 XX ; Start 04/20/17 at 02:00 Ascorbic Acid (Vitamin C) 500 mg DAILY PO Last administered on 04/21/17 08:35 ; Admin Dose 500 MG; Start 04/20/17 at 09:00 Cholecalciferol (Vitamin D) 2,000 unit DAILY PO Last administered on 04/21/17 08:35; Admin Dose 2,000 UNIT; Start 04/20/17 at 09:00 Cyanocobalamin (Vitamin B12) 1,000 mcg DAILY PO Last administered on 04/21/17 08:34; Admin Dose 1,000 MCG; Start 04/20/17 at 09:00 Docusate Sodium (Colace) 100 mg DAILY PO Last administered on 04/21/17 08:34; Admin Dose 100 MG; Start 04/20/17 at 09:00 Ferrous Sulfate (Ferrous Sulfate (Ec)) 325 mg TID PO Last administered on 08:34; Admin Dose 325 MG; Start 04/19/17 at 21:00 Folic Acid (Folic Acid) 1 mg DAILY PO Last administered on 04/21/17 08:34; Admin Dose 1 MG; Start 04/20/17 at 09:00 Memantine (Namenda) 10 mg BID PO Last administered on 04/21/17 08:34; Admin Dose 10 MG; Start 04/19/17 at 21:00 Multivitamins Therapeutic (Theragran) 1 tab DAILY PO Last administered on 08:34; Admin Dose 1 TAB; Start 04/20/17 at 09:00 Ondansetron HCl (Zofran Odt) 4 mg Q4H PRN ODT NAUSEA AND/OR VOMITING; Start at 13:00 Pantoprazole (Protonix Tab) 40 mg BID@06,18 PO Last administered on 04/21/17 06:15; Admin Dose 40 MG; Start 04/19/17 at 18:00 Pramipexole (Mirapex) 0.125 mg TID PO Last administered on 04/21/17 08:34; Admin Dose 0.125 MG; Start 04/19/17 at 21:00 Pyridoxine HCl (Vitamin B6) 50 mg DAILY PO Last administered on 04/21/17 08:34 ; Admin Dose 50 MG; Start 04/20/17 at 09:00 Rivastigmine Tartrate (Exelon) 3 mg BID PO Last administered on 04/21/17 08:34 ; Admin Dose 3 MG; Start 04/19/17 at 21:00 Tramadol HCl (Ultram) 50 mg Q8H PRN PO PAIN Last administered on 04/19/17 22: 20; Admin Dose 50 MG; Start 04/19/17 at 13:00 Linagliptin (Tradjenta) 5 mg DAILY PO Last administered on 04/21/17 08:35; Admin Dose 5 MG; Start 04/20/17 at 09:00 Miscellaneous Information 1 ea NOTE XX ; Start 04/19/17 at 15:00 Glucose (Glutose) 15 gm Q15M PRN PO DECREASED GLUCOSE; Start 04/19/17 at 15:00 Glucose (Glutose) 22.5 gm Q15M PRN PO DECREASED GLUCOSE; Start 04/19/17 at 15: 00 Dextrose (D50w Syringe) 25 ml Q15M PRN IV DECREASED GLUCOSE; Start 04/19/17 at 15:00 Dextrose (D50w Syringe) 50 ml Q15M PRN IV DECREASED GLUCOSE; Start 04/19/17 at 15:00 Glucagon (Glucagen) 1 mg Q15M PRN IM DECREASED GLUCOSE; Start 04/19/17 at 15:00 Glucose (Glutose) 15 gm Q15M PRN BUCCAL DECREASED GLUCOSE; Start 04/19/17 at 15 :00 Lisinopril (Zestril) 5 mg DAILY PO Last administered on 04/21/17 08:35; Admin Dose 5 MG; Start 04/20/17 at 09:00 ROSSI KELLY DO Apr 21, 2017 09:43
[2017-04-21] MEDS: traMADol 50 MG TAB PO PRN (12:06)
[2017-04-21] MEDS ORDERED: MAGNESIUM SULFATE 1 GM/D5W 100 ML IVPB ONE (13:30)
--- NOTE | 2017-04-21 18:47 | CONS ---
Date/Time of Note Date/Time of Note DATE: 04/21/17 TIME: 18:43 Consult Date/Type/Reason Admit Date/Time Apr 19, 2017 at 11:48 Initial Consult Date 04/19/17 Type of Consultation: cardiology Ordering Provider: BRENT SINHA Subjective d/w staff and rhythm was reviewed pt remains in NSR SHE DENIES ANY CP or pressure to me now no palpitations. O: Gen elderly no acute distress HEENT: NCAT, pupils are equal and round NECK: supple no JVD CV RRR systolic murmur pulm: no wheezing GI soft NT no rebound ext trace edema neuro awake and alert Ox2 psych: calm and pleasant Objective Vital Signs Date Time Temp Pulse Resp B/P Pulse Ox O2 Delivery O2 Flow Rate FiO2 04/21/17 16:00 62 04/21/17 15:10 98.5 18 141/67 95 04/19/17 14:57 Room Air Intake and Output 04/20/17 04/20/17 04/21/17 15:00 23:00 07:00 Intake Total 650 ml 450 ml Output Total 550 ml Balance 100 ml 450 ml Results/Medications Result Diagram: 04/21/17 0634 04/21/17 0634 Results 24 hrs Laboratory Tests Test 04/20/17 20:16 04/21/17 06:34 04/21/17 07:34 04/21/17 11:48 Bedside Glucose 154 228 H 350 H White Blood Count 8.2 Red Blood Count 2.82 L Hemoglobin 9.2 L Hematocrit 28.3 L Mean Corpuscular Volume 100.4 Mean Corpuscular Hemoglobin 32.6 Mean Corpuscular Hemoglobin Concent 32.5 Red Cell Distribution Width 13.3 Platelet Count 182 Mean Platelet Volume 11.1 H Neutrophils % Segmented Neutrophils % (Manual) 51 Band Neutrophils % (Manual) 4 Lymphocytes % Lymphocytes % (Manual) 28 Monocytes % Monocytes % (Manual) 13 H Eosinophils % Eosinophils % (Manual) 3 Basophils % Plasma Cells % (manual) 1 Nucleated Red Blood Cells % 0.0 Neutrophils # Neutrophils # (Manual) 4.2 Band Neutrophils # 0.3 Absolute Lymphocytes (Manual) 2.2 Lymphocytes # Monocytes # Absolute Monocytes (Manual) 1.0 H Eosinophils # Basophils # Plasma Cells # (manual) 0.0 Nucleated Red Blood Cells # Platelet Estimate NORMAL Polychromasia 1+ Ovalocytes 1+ Sodium Level 135 Potassium Level 4.2 Chloride Level 101 Carbon Dioxide Level 25 Anion Gap 13 Blood Urea Nitrogen 16 Creatinine 1.00 Glucose Level 192 Calcium Level 8.8 Phosphorus Level 3.8 Magnesium Level 1.7 Test 04/21/17 16:39 Bedside Glucose 317 H Medications Current Medications Aspirin (Aspirin) 81 mg DAILY PO Last administered on 04/21/17 08:34; Admin Dose 81 MG; Start 04/20/17 at 09:00 Atorvastatin Calcium (Lipitor) 40 mg HS PO Last administered on 04/20/17 21:19 ; Admin Dose 40 MG; Start 04/19/17 at 21:00 Metoprolol Tartrate (Lopressor) 25 mg BID PO Last administered on 04/21/17 08: 35; Admin Dose 25 MG; Start 04/19/17 at 21:00 Diagnostic Test (Pha) (Accu-Chek) 1 ea 02 XX ; Start 04/20/17 at 02:00 Ascorbic Acid (Vitamin C) 500 mg DAILY PO Last administered on 04/21/17 08:35 ; Admin Dose 500 MG; Start 04/20/17 at 09:00 Cholecalciferol (Vitamin D) 2,000 unit DAILY PO Last administered on 04/21/17 08:35; Admin Dose 2,000 UNIT; Start 04/20/17 at 09:00 Cyanocobalamin (Vitamin B12) 1,000 mcg DAILY PO Last administered on 04/21/17 08:34; Admin Dose 1,000 MCG; Start 04/20/17 at 09:00 Docusate Sodium (Colace) 100 mg DAILY PO Last administered on 04/21/17 08:34; Admin Dose 100 MG; Start 04/20/17 at 09:00 Ferrous Sulfate (Ferrous Sulfate (Ec)) 325 mg TID PO Last administered on 12:05; Admin Dose 325 MG; Start 04/19/17 at 21:00 Folic Acid (Folic Acid) 1 mg DAILY PO Last administered on 04/21/17 08:34; Admin Dose 1 MG; Start 04/20/17 at 09:00 Memantine (Namenda) 10 mg BID PO Last administered on 04/21/17 08:34; Admin Dose 10 MG; Start 04/19/17 at 21:00 Multivitamins Therapeutic (Theragran) 1 tab DAILY PO Last administered on 08:34; Admin Dose 1 TAB; Start 04/20/17 at 09:00 Ondansetron HCl (Zofran Odt) 4 mg Q4H PRN ODT NAUSEA AND/OR VOMITING; Start at 13:00 Pantoprazole (Protonix Tab) 40 mg BID@06,18 PO Last administered on 04/21/17 16:38; Admin Dose 40 MG; Start 04/19/17 at 18:00 Pramipexole (Mirapex) 0.125 mg TID PO Last administered on 04/21/17 12:05; Admin Dose 0.125 MG; Start 04/19/17 at 21:00 Pyridoxine HCl (Vitamin B6) 50 mg DAILY PO Last administered on 04/21/17 08:34 ; Admin Dose 50 MG; Start 04/20/17 at 09:00 Rivastigmine Tartrate (Exelon) 3 mg BID PO Last administered on 04/21/17 08:34 ; Admin Dose 3 MG; Start 04/19/17 at 21:00 Tramadol HCl (Ultram) 50 mg Q8H PRN PO PAIN Last administered on 04/21/17 12: 06; Admin Dose 50 MG; Start 04/19/17 at 13:00 Linagliptin (Tradjenta) 5 mg DAILY PO Last administered on 04/21/17 08:35; Admin Dose 5 MG; Start 04/20/17 at 09:00 Miscellaneous Information 1 ea NOTE XX ; Start 04/19/17 at 15:00 Glucose (Glutose) 15 gm Q15M PRN PO DECREASED GLUCOSE; Start 04/19/17 at 15:00 Glucose (Glutose) 22.5 gm Q15M PRN PO DECREASED GLUCOSE; Start 04/19/17 at 15: 00 Dextrose (D50w Syringe) 25 ml Q15M PRN IV DECREASED GLUCOSE; Start 04/19/17 at 15:00 Dextrose (D50w Syringe) 50 ml Q15M PRN IV DECREASED GLUCOSE; Start 04/19/17 at 15:00 Glucagon (Glucagen) 1 mg Q15M PRN IM DECREASED GLUCOSE; Start 04/19/17 at 15:00 Glucose (Glutose) 15 gm Q15M PRN BUCCAL DECREASED GLUCOSE; Start 04/19/17 at 15 :00 Lisinopril (Zestril) 5 mg DAILY PO Last administered on 04/21/17t 08:35; Admin Dose 5 MG; Start 04/20/17 at 09:00 Lidocaine (Lidoderm) 1 patch DAILY@20 TD ; Start 04/21/17 at 20:00 Assessment/Plan Chief Complaint/Hosp Course 1. NSTEMI 2. multivessel CAD including LM disease 3. anemia 4. HTN 5. Dementia 6. dyslipidemia cont medical therapy CT surgery has evaluated the pt. cont ASA LIPITOR Metoprolol will add imdur JS STEPHENSON MD FAC Problems: JS STEPHENSON MD Apr 21, 2017 18:47
[2017-04-21] MEDS: ATORVASTATIN 40 MG TAB PO SCH (21:10)
[2017-04-21] MEDS: LIDOCAINE 5% PATCH TD SCH (21:18)
[2017-04-22] VITALS (13 sets, daily range): BP systolic 100–136; BP diastolic 54–65; PULSE 59–70; RESP 16–20
[2017-04-22] MEDS ORDERED: ACCU-CHEK XX SCH ×2 (02:00)
[2017-04-22] MEDS: ACCU-CHEK XX SCH (02:48)
[2017-04-22] MEDS: PANTOPRAZOLE (EC) 40 MG TAB PO SCH ×2 (05:58→17:20)
[2017-04-22] MEDS: INSULIN ASPART [NOVOLOG] 3 ML PEN SC SCH ×4 (07:41→20:45)
[2017-04-22] MEDS: MEMANTINE 10 MG TAB PO SCH ×2 (07:53→20:43)
[2017-04-22] MEDS: CHOLECALCIFEROL 1,000 UNIT TAB PO SCH (07:53)
[2017-04-22] MEDS: RIVASTIGMINE 1.5 MG CAP PO SCH ×2 (07:53→20:44)
[2017-04-22] MEDS: DOCUSATE SODIUM 100 MG CAP PO SCH (07:54)
[2017-04-22] MEDS: PYRIDOXINE 50 MG TAB PO SCH (07:54)
[2017-04-22] MEDS: ASPIRIN 81 MG TAB PO SCH (07:54)
[2017-04-22] MEDS: MULTIVITAMINS THERAPEUTIC TAB PO SCH (07:54)
[2017-04-22] MEDS: ASCORBIC ACID 500 MG TAB PO SCH (07:54)
[2017-04-22] MEDS: FOLIC ACID 1 MG TAB PO SCH (07:54)
[2017-04-22] MEDS: PRAMIPEXOLE 0.125 MG TAB PO SCH ×3 (07:54→20:44)
[2017-04-22] MEDS: LINAGLIPTIN 5 MG TABLET PO SCH (07:54)
[2017-04-22] MEDS: FERROUS SULFATE (EC) 325 MG TAB PO SCH ×3 (07:54→20:42)
[2017-04-22] MEDS: CYANOCOBALAMIN 500 MCG TAB PO SCH (07:54)
[2017-04-22] MEDS: LISINOPRIL 5 MG TAB PO SCH (07:55)
[2017-04-22] MEDS: METOPROLOL 25 MG TAB PO SCH ×2 (07:55→20:43)
[2017-04-22] MEDS: ISOSORBIDE MONONITRATE(SR)30 MG TAB PO SCH (08:01)
[2017-04-22] MEDS: traMADol 50 MG TAB PO PRN ×2 (08:57→22:34)
--- NOTE | 2017-04-22 10:28 | PN ---
Date/Time of Note Date/Time of Note DATE: 04/22/17 TIME: 10:27 Assessment/Plan VTE Prophylaxis VTE Prophylaxis Intervention: other Lines/Catheters IV [facility] Type [facility]from [facility]): Saline Lock Assessment/Plan Chief Complaint/Hosp Course SUBJECTIVE: The patient was seen by Dr. Zurita who given the patient's comorbidities and advanced age, recommended medical management. No other events noted. No hemoptysis, hematemesis or hematochezia. events were reviewed complaining of severe weakness OBJECTIVE: HEENT: Head is normocephalic. NECK: Supple. HEART: Regular rate. LUNGS: Show diminished breath sounds at the base. ABDOMEN: Soft, nontender to palpation. No rebound or guarding. EXTREMITIES: Negative for clubbing, cyanosis, edema. DERMATOLOGIC: No rashes. MUSCULOSKELETAL: No joint effusions. NEUROLOGIC: No change in exam. MEDICATIONS: Have been reviewed. ASSESSMENT AND PLAN: 1. Coronary artery disease status post cardiac catheterization. The patient was seen by CT surgery, no plans for coronary artery bypass graft at this time. Continue medical management and follow up with Cardiology. 2. Diabetes. Continue current insulin regimen. 3. Hypertension. Continue current blood pressure regimen. 4. History of chronic obstructive pulmonary disease. Continue to monitor. 5. Cognitive decline, dementia. Continue Namenda and Exelon patch. 6. Anemia. Continue to monitor hemoglobin and hematocrit levels. 7. Chronic kidney disease. Renal function is currently stable. Continue to monitor. continue PT/OT for debility Problems: Exam/Review of Systems Vital Signs Vitals Vital Signs Date Time Temp Pulse Resp B/P Pulse Ox O2 Delivery O2 Flow Rate FiO2 04/22/17 08:24 65 04/22/17 07:53 99.0 16 120/59 91 04/19/17 14:57 Room Air Intake and Output 04/21/17 04/21/17 04/22/17 15:00 23:00 07:00 Intake Total 1100 ml 400 ml Balance 1100 ml 400 ml Results Result Diagram: 04/21/17 0634 04/21/17 0634 Results 24 hrs Laboratory Tests Test 04/21/17 11:48 04/21/17 16:39 04/21/17 20:44 04/22/17 02:00 Bedside Glucose 350 H 317 H 236 H 232 H Test 04/22/17 07:37 Bedside Glucose 211 Medications Medications Current Medications Aspirin (Aspirin) 81 mg DAILY PO Last administered on 04/22/17 07:54; Admin Dose 81 MG; Start 04/20/17 at 09:00 Atorvastatin Calcium (Lipitor) 40 mg HS PO Last administered on 04/21/17 21:10 ; Admin Dose 40 MG; Start 04/19/17 at 21:00 Metoprolol Tartrate (Lopressor) 25 mg BID PO Last administered on 04/22/17 07: 55; Admin Dose 25 MG; Start 04/19/17 at 21:00 Diagnostic Test (Pha) (Accu-Chek) 1 ea 02 XX Last administered on 04/22/17 02: 48; Admin Dose 1 EA; Start 04/20/17 at 02:00 Ascorbic Acid (Vitamin C) 500 mg DAILY PO Last administered on 04/22/17 07:54 ; Admin Dose 500 MG; Start 04/20/17 at 09:00 Cholecalciferol (Vitamin D) 2,000 unit DAILY PO Last administered on 04/22/17 07:53; Admin Dose 2,000 UNIT; Start 04/20/17 at 09:00 Cyanocobalamin (Vitamin B12) 1,000 mcg DAILY PO Last administered on 04/22/17 07:54; Admin Dose 1,000 MCG; Start 04/20/17 at 09:00 Docusate Sodium (Colace) 100 mg DAILY PO Last administered on 04/22/17 07:54; Admin Dose 100 MG; Start 04/20/17 at 09:00 Ferrous Sulfate (Ferrous Sulfate (Ec)) 325 mg TID PO Last administered on 07:54; Admin Dose 325 MG; Start 04/19/17 at 21:00 Folic Acid (Folic Acid) 1 mg DAILY PO Last administered on 04/22/17 07:54; Admin Dose 1 MG; Start 04/20/17 at 09:00 Memantine (Namenda) 10 mg BID PO Last administered on 04/22/17 07:53; Admin Dose 10 MG; Start 04/19/17 at 21:00 Multivitamins Therapeutic (Theragran) 1 tab DAILY PO Last administered on 07:54; Admin Dose 1 TAB; Start 04/20/17 at 09:00 Ondansetron HCl (Zofran Odt) 4 mg Q4H PRN ODT NAUSEA AND/OR VOMITING; Start at 13:00 Pantoprazole (Protonix Tab) 40 mg BID@06,18 PO Last administered on 04/22/17 05:58; Admin Dose 40 MG; Start 04/19/17 at 18:00 Pramipexole (Mirapex) 0.125 mg TID PO Last administered on 04/22/17 07:54; Admin Dose 0.125 MG; Start 04/19/17 at 21:00 Pyridoxine HCl (Vitamin B6) 50 mg DAILY PO Last administered on 04/22/17 07:54 ; Admin Dose 50 MG; Start 04/20/17 at 09:00 Rivastigmine Tartrate (Exelon) 3 mg BID PO Last administered on 04/22/17 07:53 ; Admin Dose 3 MG; Start 04/19/17 at 21:00 Tramadol HCl (Ultram) 50 mg Q8H PRN PO PAIN Last administered on 04/22/17 08: 57; Admin Dose 50 MG; Start 04/19/17 at 13:00 Linagliptin (Tradjenta) 5 mg DAILY PO Last administered on 04/22/17 07:54; Admin Dose 5 MG; Start 04/20/17 at 09:00 Miscellaneous Information 1 ea NOTE XX ; Start 04/19/17 at 15:00 Glucose (Glutose) 15 gm Q15M PRN PO DECREASED GLUCOSE; Start 04/19/17 at 15:00 Glucose (Glutose) 22.5 gm Q15M PRN PO DECREASED GLUCOSE; Start 04/19/17 at 15: 00 Dextrose (D50w Syringe) 25 ml Q15M PRN IV DECREASED GLUCOSE; Start 04/19/17 at 15:00 Dextrose (D50w Syringe) 50 ml Q15M PRN IV DECREASED GLUCOSE; Start 04/19/17 at 15:00 Glucagon (Glucagen) 1 mg Q15M PRN IM DECREASED GLUCOSE; Start 04/19/17 at 15:00 Glucose (Glutose) 15 gm Q15M PRN BUCCAL DECREASED GLUCOSE; Start 04/19/17 at 15 :00 Lisinopril (Zestril) 5 mg DAILY PO Last administered on 04/22/17 07:55; Admin Dose 5 MG; Start 04/20/17 at 09:00 Lidocaine (Lidoderm) 1 patch DAILY@20 TD Last administered on 04/21/17 21:18; Admin Dose 1 PATCH; Start 04/21/17 at 20:00 Isosorbide Mononitrate (Imdur) 30 mg DAILY PO Last administered on 04/22/17 08 :01; Admin Dose 30 MG; Start 04/22/17 at 09:00 ROSSI KELLY DO Apr 22, 2017 10:28
--- NOTE | 2017-04-22 17:28 | RADRPT ---
PROCEDURE: US Lower extremity Venous. CLINICAL INDICATION: Left leg pain and swelling TECHNIQUE: Multiple sonographic images of the left lower extremity deep venous system was obtained utilizing grayscale, color-flow, compressive sonography and doppler imaging with augmentation. The images were reviewed on a PACS workstation. COMPARISON: None. FINDINGS: There is normal compressibility and flow within the left common femoral, deep femoral, superficial f emoral and popliteal veins. Normal color flow is seen with respiratory variability and augmentation. IMPRESSION: No sonographic evidence for deep venous thrombosis in the left lower extremity. RPTAT: HPNM Physician Maria E Date Time Electronically viewed and signed by Physician Maria E on 04/22/2017 17:28 /
--- NOTE | 2017-04-22 18:07 | CONS ---
Date/Time of Note Date/Time of Note DATE: 04/22/17 TIME: 18:06 Consult Date/Type/Reason Admit Date/Time Apr 19, 2017 at 11:48 Initial Consult Date 04/19/17 Type of Consultation: cardiology Ordering Provider: BRENT SINHA Subjective d/w staff and rhythm was reviewed pt remains in NSR SHE DENIES ANY CP or pressure to me now no palpitations. O: Gen elderly no acute distress HEENT: NCAT, pupils are equal and round NECK: supple no JVD CV RRR systolic murmur pulm: no wheezing GI soft NT no rebound ext trace edema neuro awake and alert Ox2 psych: calm and pleasant Objective Vital Signs Date Time Temp Pulse Resp B/P Pulse Ox O2 Delivery O2 Flow Rate FiO2 04/22/17 16:06 62 04/22/17 16:04 98.9 18 115/59 94 04/19/17 14:57 Room Air Intake and Output 04/21/17 04/21/17 04/22/17 15:00 23:00 07:00 Intake Total 1100 ml 400 ml Balance 1100 ml 400 ml Results/Medications Result Diagram: 04/21/17 0634 04/21/17 0634 Results 24 hrs Laboratory Tests Test 04/21/17 20:44 04/22/17 02:00 04/22/17 07:37 04/22/17 11:55 Bedside Glucose 236 H 232 H 211 235 H Test 04/22/17 16:48 Bedside Glucose 193 Medications Current Medications Aspirin (Aspirin) 81 mg DAILY PO Last administered on 04/22/17 07:54; Admin Dose 81 MG; Start 04/20/17 at 09:00 Atorvastatin Calcium (Lipitor) 40 mg HS PO Last administered on 04/21/17 21:10 ; Admin Dose 40 MG; Start 04/19/17 at 21:00 Metoprolol Tartrate (Lopressor) 25 mg BID PO Last administered on 04/22/17 07: 55; Admin Dose 25 MG; Start 04/19/17 at 21:00 Diagnostic Test (Pha) (Accu-Chek) 1 ea 02 XX Last administered on 04/22/17 02: 48; Admin Dose 1 EA; Start 04/20/17 at 02:00 Ascorbic Acid (Vitamin C) 500 mg DAILY PO Last administered on 04/22/17 07:54 ; Admin Dose 500 MG; Start 04/20/17 at 09:00 Cholecalciferol (Vitamin D) 2,000 unit DAILY PO Last administered on 04/22/17 07:53; Admin Dose 2,000 UNIT; Start 04/20/17 at 09:00 Cyanocobalamin (Vitamin B12) 1,000 mcg DAILY PO Last administered on 04/22/17 07:54; Admin Dose 1,000 MCG; Start 04/20/17 at 09:00 Docusate Sodium (Colace) 100 mg DAILY PO Last administered on 04/22/17 07:54; Admin Dose 100 MG; Start 04/20/17 at 09:00 Ferrous Sulfate (Ferrous Sulfate (Ec)) 325 mg TID PO Last administered on 13:22; Admin Dose 325 MG; Start 04/19/17 at 21:00 Folic Acid (Folic Acid) 1 mg DAILY PO Last administered on 04/22/17 07:54; Admin Dose 1 MG; Start 04/20/17 at 09:00 Memantine (Namenda) 10 mg BID PO Last administered on 04/22/17 07:53; Admin Dose 10 MG; Start 04/19/17 at 21:00 Multivitamins Therapeutic (Theragran) 1 tab DAILY PO Last administered on 07:54; Admin Dose 1 TAB; Start 04/20/17 at 09:00 Ondansetron HCl (Zofran Odt) 4 mg Q4H PRN ODT NAUSEA AND/OR VOMITING; Start at 13:00 Pantoprazole (Protonix Tab) 40 mg BID@18 PO Last administered on 04/22/17 17:20; Admin Dose 40 MG; Start 04/19/17 at 18:00 Pramipexole (Mirapex) 0.125 mg TID PO Last administered on 04/22/17 13:22; Admin Dose 0.125 MG; Start 04/19/17 at 21:00 Pyridoxine HCl (Vitamin B6) 50 mg DAILY PO Last administered on 04/22/17 07:54 ; Admin Dose 50 MG; Start 04/20/17 at 09:00 Rivastigmine Tartrate (Exelon) 3 mg BID PO Last administered on 04/22/17 07:53 ; Admin Dose 3 MG; Start 04/19/17 at 21:00 Tramadol HCl (Ultram) 50 mg Q8H PRN PO PAIN Last administered on 04/22/17 08: 57; Admin Dose 50 MG; Start 04/19/17 at 13:00 Linagliptin (Tradjenta) 5 mg DAILY PO Last administered on 04/22/17 07:54; Admin Dose 5 MG; Start 04/20/17 at 09:00 Miscellaneous Information 1 ea NOTE XX ; Start 04/19/17 at 15:00 Glucose (Glutose) 15 gm Q15M PRN PO DECREASED GLUCOSE; Start 04/19/17 at 15:00 Glucose (Glutose) 22.5 gm Q15M PRN PO DECREASED GLUCOSE; Start 04/19/17 at 15: 00 Dextrose (D50w Syringe) 25 ml Q15M PRN IV DECREASED GLUCOSE; Start 04/19/17 at 15:00 Dextrose (D50w Syringe) 50 ml Q15M PRN IV DECREASED GLUCOSE; Start 04/19/17 at 15:00 Glucagon (Glucagen) 1 mg Q15M PRN IM DECREASED GLUCOSE; Start 04/19/17 at 15:00 Glucose (Glutose) 15 gm Q15M PRN BUCCAL DECREASED GLUCOSE; Start 04/19/17 at 15 :00 Lisinopril (Zestril) 5 mg DAILY PO Last administered on 04/22/17 07:55; Admin Dose 5 MG; Start 04/20/17 at 09:00 Lidocaine (Lidoderm) 1 patch DAILY@20 TD Last administered on 04/21/17 21:18; Admin Dose 1 PATCH; Start 04/21/17 at 20:00 Isosorbide Mononitrate (Imdur) 30 mg DAILY PO Last administered on 04/22/17 08 :01; Admin Dose 30 MG; Start 04/22/17 at 09:00 Assessment/Plan Chief Complaint/Hosp Course 1. NSTEMI 2. multivessel CAD including LM disease 3. anemia 4. HTN 5. Dementia 6. dyslipidemia cont medical therapy CT surgery has already evaluated the pt. cont ASA LIPITOR Metoprolol will cont imdur Dr merino to follow up tomorrow. JS STEPHESNON MD [facility] Problems: JS STEPHENSON MD Apr 22, 2017 18:07
[2017-04-22] MEDS: ATORVASTATIN 40 MG TAB PO SCH (20:42)
[2017-04-22] MEDS: LIDOCAINE 5% PATCH TD SCH (20:45)
[2017-04-23] VITALS (11 sets, daily range): BP systolic 123–145; BP diastolic 60–66; PULSE 54–75; RESP 17–21
[2017-04-23] MEDS: ACCU-CHEK XX SCH (02:00)
[2017-04-23] MEDS: PANTOPRAZOLE (EC) 40 MG TAB PO SCH ×2 (06:24→17:38)
[2017-04-23] MEDS: FERROUS SULFATE (EC) 325 MG TAB PO SCH ×3 (08:48→21:35)
[2017-04-23] MEDS: ASCORBIC ACID 500 MG TAB PO SCH (08:48)
[2017-04-23] MEDS: FOLIC ACID 1 MG TAB PO SCH (08:48)
[2017-04-23] MEDS: DOCUSATE SODIUM 100 MG CAP PO SCH (08:48)
[2017-04-23] MEDS: MEMANTINE 10 MG TAB PO SCH ×2 (08:48→21:35)
[2017-04-23] MEDS: PRAMIPEXOLE 0.125 MG TAB PO SCH ×3 (08:48→21:34)
[2017-04-23] MEDS: ASPIRIN 81 MG TAB PO SCH (08:48)
[2017-04-23] MEDS: RIVASTIGMINE 1.5 MG CAP PO SCH ×2 (08:49→21:35)
[2017-04-23] MEDS: METOPROLOL 25 MG TAB PO SCH ×2 (08:49→21:34)
[2017-04-23] MEDS: PYRIDOXINE 50 MG TAB PO SCH (08:49)
[2017-04-23] MEDS: MULTIVITAMINS THERAPEUTIC TAB PO SCH (08:49)
[2017-04-23] MEDS: CHOLECALCIFEROL 1,000 UNIT TAB PO SCH (08:49)
[2017-04-23] MEDS: LINAGLIPTIN 5 MG TABLET PO SCH (08:50)
[2017-04-23] MEDS: LISINOPRIL 5 MG TAB PO SCH (08:50)
[2017-04-23] MEDS: CYANOCOBALAMIN 500 MCG TAB PO SCH (08:50)
[2017-04-23] MEDS: ISOSORBIDE MONONITRATE(SR)30 MG TAB PO SCH (08:50)
[2017-04-23] MEDS: INSULIN ASPART [NOVOLOG] 3 ML PEN SC SCH ×4 (08:54→20:43)
[2017-04-23] MEDS ORDERED: metFORMIN 500 MG TAB PO SCH (10:00)
[2017-04-23 14:36] LABS: MICROALBUMIN 16.5 mg/dL
--- NOTE | 2017-04-23 14:42 | PN ---
Date/Time of Note Date/Time of Note DATE: 04/23/17 TIME: 14:41 Assessment/Plan VTE Prophylaxis VTE Prophylaxis Intervention: other Lines/Catheters IV Catheter Type (from [facility]): [facility] Urinary Cath still in place: No Assessment/Plan Chief Complaint/Hosp Course SUBJECTIVE: The patient was seen by Dr. Zurita who given the patient's comorbidities and advanced age, recommended medical management. No other events noted. No hemoptysis, hematemesis or hematochezia. events were reviewed complaining of severe weakness seen by PT hyperglycemic OBJECTIVE: HEENT: Head is normocephalic. NECK: Supple. HEART: Regular rate. LUNGS: Show diminished breath sounds at the base. ABDOMEN: Soft, nontender to palpation. No rebound or guarding. EXTREMITIES: Negative for clubbing, cyanosis, edema. DERMATOLOGIC: No rashes. MUSCULOSKELETAL: No joint effusions. NEUROLOGIC: No change in exam. MEDICATIONS: Have been reviewed. ASSESSMENT AND PLAN: 1. Coronary artery disease status post cardiac catheterization. The patient was seen by CT surgery, no plans for coronary artery bypass graft at this time. Continue medical management and follow up with Cardiology. 2. Diabetes. will increase metformin. Continue current insulin regimen. 3. Hypertension. Continue current blood pressure regimen. 4. History of chronic obstructive pulmonary disease. Continue to monitor. 5. Cognitive decline, dementia. Continue Namenda and Exelon patch. 6. Anemia. Continue to monitor hemoglobin and hematocrit levels. 7. Chronic kidney disease. Renal function is currently stable. Continue to monitor. continue PT/OT for debility Problems: Exam/Review of Systems Vital Signs Vitals Vital Signs Date Time Temp Pulse Resp B/P Pulse Ox O2 Delivery O2 Flow Rate FiO2 04/23/17 12:03 54 04/23/17 11:17 98.3 18 137/63 94 04/19/17 14:57 Room Air Intake and Output 04/22/17 04/22/17 04/23/17 15:00 23:00 07:00 Intake Total 800 ml 400 ml Balance 800 ml 400 ml Results Result Diagram: 04/21/17 0634 04/21/17 0634 Results 24 hrs Laboratory Tests Test 04/22/17 16:48 04/22/17 20:30 04/23/17 01:37 04/23/17 08:43 Bedside Glucose 193 168 191 234 H Test 04/23/17 12:22 Bedside Glucose 321 H Medications Medications Current Medications Aspirin (Aspirin) 81 mg DAILY PO Last administered on 04/23/17 08:48; Admin Dose 81 MG; Start 04/20/17 at 09:00 Atorvastatin Calcium (Lipitor) 40 mg HS PO Last administered on 04/22/17 20:42 ; Admin Dose 40 MG; Start 04/19/17 at 21:00 Metoprolol Tartrate (Lopressor) 25 mg BID PO Last administered on 04/23/17 08: 49; Admin Dose 25 MG; Start 04/19/17 at 21:00 Diagnostic Test (Pha) (Accu-Chek) 1 ea 02 XX Last administered on 04/23/17 02: 00; Admin Dose 1 EA; Start 04/20/17 at 02:00 Ascorbic Acid (Vitamin C) 500 mg DAILY PO Last administered on 04/23/17 08:48 ; Admin Dose 500 MG; Start 04/20/17 at 09:00 Cholecalciferol (Vitamin D) 2,000 unit DAILY PO Last administered on 04/23/17 08:49; Admin Dose 2,000 UNIT; Start 04/20/17 at 09:00 Cyanocobalamin (Vitamin B12) 1,000 mcg DAILY PO Last administered on 04/23/17 08:50; Admin Dose 1,000 MCG; Start 04/20/17 at 09:00 Docusate Sodium (Colace) 100 mg DAILY PO Last administered on 04/23/17 08:48; Admin Dose 100 MG; Start 04/20/17 at 09:00 Ferrous Sulfate (Ferrous Sulfate (Ec)) 325 mg TID PO Last administered on 12:24; Admin Dose 325 MG; Start 04/19/17 at 21:00 Folic Acid (Folic Acid) 1 mg DAILY PO Last administered on 04/23/17 08:48; Admin Dose 1 MG; Start 04/20/17 at 09:00 Memantine (Namenda) 10 mg BID PO Last administered on 04/23/17 08:48; Admin Dose 10 MG; Start 04/19/17 at 21:00 Multivitamins Therapeutic (Theragran) 1 tab DAILY PO Last administered on 08:49; Admin Dose 1 TAB; Start 04/20/17 at 09:00 Ondansetron HCl (Zofran Odt) 4 mg Q4H PRN ODT NAUSEA AND/OR VOMITING; Start at 13:00 Pantoprazole (Protonix Tab) 40 mg BID@06,18 PO Last administered on 04/23/17 06:24; Admin Dose 40 MG; Start 04/19/17 at 18:00 Pramipexole (Mirapex) 0.125 mg TID PO Last administered on 04/23/17 12:24; Admin Dose 0.125 MG; Start 04/19/17 at 21:00 Pyridoxine HCl (Vitamin B6) 50 mg DAILY PO Last administered on 04/23/17 08:49 ; Admin Dose 50 MG; Start 04/20/17 at 09:00 Rivastigmine Tartrate (Exelon) 3 mg BID PO Last administered on 04/23/17 08:49 ; Admin Dose 3 MG; Start 04/19/17 at 21:00 Tramadol HCl (Ultram) 50 mg Q8H PRN PO PAIN Last administered on 04/22/17 22: 34; Admin Dose 50 MG; Start 04/19/17 at 13:00 Linagliptin (Tradjenta) 5 mg DAILY PO Last administered on 04/23/17 08:50; Admin Dose 5 MG; Start 04/20/17 at 09:00 Miscellaneous Information 1 ea NOTE XX ; Start 04/19/17 at 15:00 Glucose (Glutose) 15 gm Q15M PRN PO DECREASED GLUCOSE; Start 04/19/17 at 15:00 Glucose (Glutose) 22.5 gm Q15M PRN PO DECREASED GLUCOSE; Start 04/19/17 at 15: 00 Dextrose (D50w Syringe) 25 ml Q15M PRN IV DECREASED GLUCOSE; Start 04/19/17 at 15:00 Dextrose (D50w Syringe) 50 ml Q15M PRN IV DECREASED GLUCOSE; Start 04/19/17 at 15:00 Glucagon (Glucagen) 1 mg Q15M PRN IM DECREASED GLUCOSE; Start 04/19/17 at 15:00 Glucose (Glutose) 15 gm Q15M PRN BUCCAL DECREASED GLUCOSE; Start 04/19/17 at 15 :00 Lisinopril (Zestril) 5 mg DAILY PO Last administered on 04/23/17 08:50; Admin Dose 5 MG; Start 04/20/17 at 09:00 Lidocaine (Lidoderm) 1 patch DAILY@20 TD Last administered on 04/22/17 20:45; Admin Dose 1 PATCH; Start 04/21/17 at 20:00 Isosorbide Mononitrate (Imdur) 30 mg DAILY PO Last administered on 04/23/17 08 :50; Admin Dose 30 MG; Start 04/22/17 at 09:00 ROSSI KELLY DO Apr 23, 2017 14:42
[2017-04-23] MEDS: metFORMIN 500 MG TAB PO SCH (17:38)
[2017-04-23] MEDS: LIDOCAINE 5% PATCH TD SCH (21:33)
[2017-04-23] MEDS: ATORVASTATIN 40 MG TAB PO SCH (21:34)
--- NOTE | 2017-04-23 21:34 | PN ---
Date/Time of Note Date/Time of Note DATE: 04/23/17 TIME: 21:33 Assessment/Plan VTE Prophylaxis VTE Prophylaxis Intervention: SCD's Lines/Catheters IV Catheter Type (from [facility]): [facility] Lock Urinary Cath still in place: No Assessment/Plan Assessment/Plan NSTEMI CAD with significant ostial LM, ostial Cx and mid RCA stenosis requiring CABG DM HTN CKD: Cr 1.2 ANEMAI OBS -evaluated by CTS > reccomended medical therapy -contineu cv meds -spokewith her daughter -most sousa will treat medcailly and only consider high risk PCI with assist device at a tertiary facility if fails med therapy Subjective 24 Hr Interval Summary Free Text/Dictation The patient with no chest apin Exam/Review of Systems Vital Signs Vitals Vital Signs Date Time Temp Pulse Resp B/P Pulse Ox O2 Delivery O2 Flow Rate FiO2 04/23/17 20:00 98.1 76 21 133/66 94 04/19/17 14:57 Room Air Intake and Output 04/22/17 04/22/17 04/23/17 15:00 23:00 07:00 Intake Total 800 ml 400 ml Balance 800 ml 400 ml Results Result Diagram: 04/21/17 0634 04/21/17 0634 Results 24 hrs Laboratory Tests Test 04/23/17 01:37 04/23/17 08:43 04/23/17 12:22 04/23/17 17:33 Bedside Glucose 191 234 H 321 H 167 Test 04/23/17 20:36 Bedside Glucose 194 Medications Medications Current Medications Aspirin (Aspirin) 81 mg DAILY PO Last administered on 04/23/17 08:48; Admin Dose 81 MG; Start 04/20/17 at 09:00 Atorvastatin Calcium (Lipitor) 40 mg HS PO Last administered on 04/22/17 20:42 ; Admin Dose 40 MG; Start 04/19/17 at 21:00 Metoprolol Tartrate (Lopressor) 25 mg BID PO Last administered on 04/23/17 08: 49; Admin Dose 25 MG; Start 04/19/17 at 21:00 Diagnostic Test (Pha) (Accu-Chek) 1 ea 02 XX Last administered on 04/23/17 02: 00; Admin Dose 1 EA; Start 04/20/17 at 02:00 Ascorbic Acid (Vitamin C) 500 mg DAILY PO Last administered on 04/23/17 08:48 ; Admin Dose 500 MG; Start 04/20/17 at 09:00 Cholecalciferol (Vitamin D) 2,000 unit DAILY PO Last administered on 04/23/17 08:49; Admin Dose 2,000 UNIT; Start 04/20/17 at 09:00 Cyanocobalamin (Vitamin B12) 1,000 mcg DAILY PO Last administered on 04/23/17 08:50; Admin Dose 1,000 MCG; Start 04/20/17 at 09:00 Docusate Sodium (Colace) 100 mg DAILY PO Last administered on 04/23/17 08:48; Admin Dose 100 MG; Start 04/20/17 at 09:00 Ferrous Sulfate (Ferrous Sulfate (Ec)) 325 mg TID PO Last administered on 12:24; Admin Dose 325 MG; Start 04/19/17 at 21:00 Folic Acid (Folic Acid) 1 mg DAILY PO Last administered on 04/23/17 08:48; Admin Dose 1 MG; Start 04/20/17 at 09:00 Memantine (Namenda) 10 mg BID PO Last administered on 04/23/17 08:48; Admin Dose 10 MG; Start 04/19/17 at 21:00 Multivitamins Therapeutic (Theragran) 1 tab DAILY PO Last administered on 08:49; Admin Dose 1 TAB; Start 04/20/17 at 09:00 Ondansetron HCl (Zofran Odt) 4 mg Q4H PRN ODT NAUSEA AND/OR VOMITING; Start at 13:00 Pantoprazole (Protonix Tab) 40 mg BID@,18 PO Last administered on 04/23/17 17:38; Admin Dose 40 MG; Start 04/19/17 at 18:00 Pramipexole (Mirapex) 0.125 mg TID PO Last administered on 04/23/17 12:24; Admin Dose 0.125 MG; Start 04/19/17 at 21:00 Pyridoxine HCl (Vitamin B6) 50 mg DAILY PO Last administered on 04/23/17 08:49 ; Admin Dose 50 MG; Start 04/20/17 at 09:00 Rivastigmine Tartrate (Exelon) 3 mg BID PO Last administered on 04/23/17 08:49 ; Admin Dose 3 MG; Start 04/19/17 at 21:00 Tramadol HCl (Ultram) 50 mg Q8H PRN PO PAIN Last administered on 04/22/17 22: 34; Admin Dose 50 MG; Start 04/19/17 at 13:00 Linagliptin (Tradjenta) 5 mg DAILY PO Last administered on 04/23/17 08:50; Admin Dose 5 MG; Start 04/20/17 at 09:00 Miscellaneous Information 1 ea NOTE XX ; Start 04/19/17 at 15:00 Glucose (Glutose) 15 gm Q15M PRN PO DECREASED GLUCOSE; Start 04/19/17 at 15:00 Glucose (Glutose) 22.5 gm Q15M PRN PO DECREASED GLUCOSE; Start 04/19/17 at 15: 00 Dextrose (D50w Syringe) 25 ml Q15M PRN IV DECREASED GLUCOSE; Start 04/19/17 at 15:00 Dextrose (D50w Syringe) 50 ml Q15M PRN IV DECREASED GLUCOSE; Start 04/19/17 at 15:00 Glucagon (Glucagen) 1 mg Q15M PRN IM DECREASED GLUCOSE; Start 04/19/17 at 15:00 Glucose (Glutose) 15 gm Q15M PRN BUCCAL DECREASED GLUCOSE; Start 04/19/17 at 15 :00 Lisinopril (Zestril) 5 mg DAILY PO Last administered on 04/23/17 08:50; Admin Dose 5 MG; Start 04/20/17 at 09:00 Lidocaine (Lidoderm) 1 patch DAILY@20 TD Last administered on 04/22/17 20:45; Admin Dose 1 PATCH; Start 04/21/17 at 20:00 Isosorbide Mononitrate (Imdur) 30 mg DAILY PO Last administered on 04/23/17 08 :50; Admin Dose 30 MG; Start 04/22/17 at 09:00 REUBEN GERONIMO MD Apr 23, 2017 21:34
[2017-04-24] VITALS (12 sets, daily range): BP systolic 60–152; BP diastolic 58–69; PULSE 58–75; RESP 17–21
[2017-04-24] MEDS: ACCU-CHEK XX SCH ×2 (02:21→22:23)
[2017-04-24] MEDS: PANTOPRAZOLE (EC) 40 MG TAB PO SCH ×2 (06:11→17:26)
[2017-04-24] MEDS: CYANOCOBALAMIN 500 MCG TAB PO SCH (08:28)
[2017-04-24] MEDS: MULTIVITAMINS THERAPEUTIC TAB PO SCH (08:28)
[2017-04-24] MEDS: RIVASTIGMINE 1.5 MG CAP PO SCH ×2 (08:28→22:21)
[2017-04-24] MEDS: PYRIDOXINE 50 MG TAB PO SCH (08:28)
[2017-04-24] MEDS: metFORMIN 500 MG TAB PO SCH ×2 (08:29→17:25)
[2017-04-24] MEDS: ASPIRIN 81 MG TAB PO SCH (08:29)
[2017-04-24] MEDS: DOCUSATE SODIUM 100 MG CAP PO SCH (08:29)
[2017-04-24] MEDS: FERROUS SULFATE (EC) 325 MG TAB PO SCH ×3 (08:29→22:22)
[2017-04-24] MEDS: LINAGLIPTIN 5 MG TABLET PO SCH (08:30)
[2017-04-24] MEDS: ASCORBIC ACID 500 MG TAB PO SCH (08:30)
[2017-04-24] MEDS: MEMANTINE 10 MG TAB PO SCH ×2 (08:30→22:23)
[2017-04-24] MEDS: PRAMIPEXOLE 0.125 MG TAB PO SCH ×3 (08:30→22:22)
[2017-04-24] MEDS: FOLIC ACID 1 MG TAB PO SCH (08:30)
[2017-04-24] MEDS: ISOSORBIDE MONONITRATE(SR)30 MG TAB PO SCH (08:31)
[2017-04-24] MEDS: METOPROLOL 25 MG TAB PO SCH ×2 (08:31→22:22)
[2017-04-24] MEDS: CHOLECALCIFEROL 1,000 UNIT TAB PO SCH (08:31)
[2017-04-24] MEDS: LISINOPRIL 5 MG TAB PO SCH (08:32)
[2017-04-24] MEDS: INSULIN ASPART [NOVOLOG] 3 ML PEN SC SCH ×4 (08:50→19:59)
--- NOTE | 2017-04-24 18:04 | PN ---
Date/Time of Note Date/Time of Note DATE: 04/24/17 TIME: 18:03 Assessment/Plan VTE Prophylaxis VTE Prophylaxis Intervention: SCD's Lines/Catheters IV Catheter Type (from [facility]): [facility] Lock Urinary Cath still in place: No Assessment/Plan Assessment/Plan NSTEMI CAD with significant ostial LM, ostial Cx and mid RCA stenosis requiring CABG DM HTN CKD: Cr 1.2 ANEMAI OBS -evaluated by CTS > reccomended medical therapy -contineu cv meds -spokewith her daughter -most sousa will treat medcailly and only consider high risk PCI with assist device at a tertiary facility if fails med therapy Subjective 24 Hr Interval Summary Free Text/Dictation The patietn with no chnge Exam/Review of Systems Vital Signs Vitals Vital Signs Date Time Temp Pulse Resp B/P Pulse Ox O2 Delivery O2 Flow Rate FiO2 04/24/17 16:00 61 04/24/17 15:25 97.7 18 144/63 95 Intake and Output 04/23/17 04/23/17 04/24/17 15:00 23:00 07:00 Intake Total 640 ml 240 ml Balance 640 ml 240 ml Results Result Diagram: 04/21/17 0634 04/21/17 0634 Results 24 hrs Laboratory Tests Test 04/23/17 20:36 04/24/17 02:13 04/24/17 08:26 04/24/17 12:05 Bedside Glucose 194 201 223 H 222 H Test 04/24/17 17:24 Bedside Glucose 165 Medications Medications Current Medications Aspirin (Aspirin) 81 mg DAILY PO Last administered on 04/24/17 08:29; Admin Dose 81 MG; Start 04/20/17 at 09:00 Atorvastatin Calcium (Lipitor) 40 mg HS PO Last administered on 04/23/17 21:34 ; Admin Dose 40 MG; Start 04/19/17 at 21:00 Metoprolol Tartrate (Lopressor) 25 mg BID PO Last administered on 04/24/17 08 :31; Admin Dose 25 MG; Start 04/19/17 at 21:00 Diagnostic Test (Pha) (Accu-Chek) 1 ea 02 XX Last administered on 04/24/17 02 :21; Admin Dose 1 EA; Start 04/20/17 at 02:00 Ascorbic Acid (Vitamin C) 500 mg DAILY PO Last administered on 04/24/17 08:30 ; Admin Dose 500 MG; Start 04/20/17 at 09:00 Cholecalciferol (Vitamin D) 2,000 unit DAILY PO Last administered on 08:31; Admin Dose 2,000 UNIT; Start 04/20/17 at 09:00 Cyanocobalamin (Vitamin B12) 1,000 mcg DAILY PO Last administered on 08:28; Admin Dose 1,000 MCG; Start 04/20/17 at 09:00 Docusate Sodium (Colace) 100 mg DAILY PO Last administered on 04/24/17 08:29 ; Admin Dose 100 MG; Start 04/20/17 at 09:00 Ferrous Sulfate (Ferrous Sulfate (Ec)) 325 mg TID PO Last administered on 04/24 12:06; Admin Dose 325 MG; Start 04/19/17 at 21:00 Folic Acid (Folic Acid) 1 mg DAILY PO Last administered on 04/24/17 08:30; Admin Dose 1 MG; Start 04/20/17 at 09:00 Memantine (Namenda) 10 mg BID PO Last administered on 04/24/17 08:30; Admin Dose 10 MG; Start 04/19/17 at 21:00 Multivitamins Therapeutic (Theragran) 1 tab DAILY PO Last administered on 04/24 08:28; Admin Dose 1 TAB; Start 04/20/17 at 09:00 Ondansetron HCl (Zofran Odt) 4 mg Q4H PRN ODT NAUSEA AND/OR VOMITING; Start at 13:00 Pantoprazole (Protonix Tab) 40 mg BID@,18 PO Last administered on 04/24/17 17:26; Admin Dose 40 MG; Start 04/19/17 at 18:00 Pramipexole (Mirapex) 0.125 mg TID PO Last administered on 04/24/17 12:06; Admin Dose 0.125 MG; Start 04/19/17 at 21:00 Pyridoxine HCl (Vitamin B6) 50 mg DAILY PO Last administered on 04/24/17 08: 28; Admin Dose 50 MG; Start 04/20/17 at 09:00 Rivastigmine Tartrate (Exelon) 3 mg BID PO Last administered on 04/24/17 08: 28; Admin Dose 3 MG; Start 04/19/17 at 21:00 Tramadol HCl (Ultram) 50 mg Q8H PRN PO PAIN Last administered on 04/22/17 22: 34; Admin Dose 50 MG; Start 04/19/17 at 13:00 Linagliptin (Tradjenta) 5 mg DAILY PO Last administered on 04/24/17 08:30; Admin Dose 5 MG; Start 04/20/17 at 09:00 Miscellaneous Information 1 ea NOTE XX ; Start 04/19/17 at 15:00 Glucose (Glutose) 15 gm Q15M PRN PO DECREASED GLUCOSE; Start 04/19/17 at 15:00 Glucose (Glutose) 22.5 gm Q15M PRN PO DECREASED GLUCOSE; Start 04/19/17 at 15: 00 Dextrose (D50w Syringe) 25 ml Q15M PRN IV DECREASED GLUCOSE; Start 04/19/17 at 15:00 Dextrose (D50w Syringe) 50 ml Q15M PRN IV DECREASED GLUCOSE; Start 04/19/17 at 15:00 Glucagon (Glucagen) 1 mg Q15M PRN IM DECREASED GLUCOSE; Start 04/19/17 at 15:00 Glucose (Glutose) 15 gm Q15M PRN BUCCAL DECREASED GLUCOSE; Start 04/19/17 at 15 :00 Lisinopril (Zestril) 5 mg DAILY PO Last administered on 04/24/17 08:32; Admin Dose 5 MG; Start 04/20/17 at 09:00 Lidocaine (Lidoderm) 1 patch DAILY@20 TD Last administered on 04/23/17 21:33; Admin Dose 1 PATCH; Start 04/21/17 at 20:00 Isosorbide Mononitrate (Imdur) 30 mg DAILY PO Last administered on 04/24/17 08:31; Admin Dose 30 MG; Start 04/22/17 at 09:00 REUEBN GERONIMO MD Apr 24, 2017 18:04
[2017-04-24 19:32] LABS: BASOPHILS % 0.4 % (0.0-2.0); EOSINOPHILS # 0.3 10^3/ul (0.0-0.5); EOSINOPHILS % 3.4 % (0.0-7.0); HEMATOCRIT 28.6 % (37.0-47.0); HEMOGLOBIN 9.2 g/dl (12.0-16.0); LYMPHOCYTES # 2.3 10^3/ul (0.8-2.9); LYMPHOCYTES % 27.9 % (15.0-51.0); MEAN CORPUSCULAR HEMOGLOBIN 32.3 pg (29.0-33.0); MEAN CORPUSCULAR HGB CONC 32.2 g/dl (32.0-37.0); MEAN CORPUSCULAR VOLUME 100.4 fl (82.0-101.0); MEAN PLATELET VOLUME 10.4 fl (7.4-10.4); MONOCYTE # 1.3 10^3/ul (0.3-0.9); MONOCYTES % 15.3 % (0.0-11.0); NEUTROPHIL # 4.4 10^3/ul (1.6-7.5); NEUTROPHILS % 52.5 % (39.0-77.0); PLATELET COUNT 214 10^3/UL (140-415); RED BLOOD COUNT 2.85 10^6/ul (4.20-5.40); RED CELL DISTRIBUTION WIDTH 13.3 % (11.5-14.5); WHITE BLOOD COUNT 8.3 10^3/ul (4.8-10.8)
[2017-04-24 19:52] LABS: CALCIUM 8.9 mg/dl (8.4-10.2); CREATININE 1.02 mg/dl (0.44-1.00); POTASSIUM 4.3 mmol/L (3.5-5.1)
[2017-04-24] MEDS: LIDOCAINE 5% PATCH TD SCH (22:21)
[2017-04-24] MEDS: ATORVASTATIN 40 MG TAB PO SCH (22:22)
[2017-04-25] VITALS (12 sets, daily range): BP systolic 115–143; BP diastolic 56–66; PULSE 56–69; RESP 16–18
[2017-04-25] MEDS: PANTOPRAZOLE (EC) 40 MG TAB PO SCH ×2 (05:50→17:10)
[2017-04-25] MEDS: INSULIN ASPART [NOVOLOG] 3 ML PEN SC SCH ×4 (08:38→21:00)
--- NOTE | 2017-04-25 08:45 | PN ---
Date/Time of Note Date/Time of Note DATE: 04/25/17 TIME: 08:45 Assessment/Plan VTE Prophylaxis VTE Prophylaxis Intervention: SCD's Lines/Catheters IV C[facility]ter Type (from [facility]): [facility] Urinary Cath still in place: No Assessment/Plan Assessment/Plan NSTEMI CAD with significant ostial LM, ostial Cx and mid RCA stenosis requiring CABG DM HTN CKD: Cr 1.2 ANEMAI OBS -evaluated by CTS > reccomended medical therapy -contineu cv meds -spokewith her daughter -most sousa will treat medcailly and only consider high risk PCI with assist device at a tertiary facility if fails med therapy Subjective 24 Hr Interval Summary Free Text/Dictation the paitne stable Exam/Review of Systems Vital Signs Vitals Vital Signs Date Time Temp Pulse Resp B/P Pulse Ox O2 Delivery O2 Flow Rate FiO2 04/25/17 08:23 60 04/25/17 07:51 98.3 17 142/64 96 Intake and Output 04/24/17 04/24/17 04/25/17 15:00 23:00 07:00 Intake Total 900 ml 240 ml Balance 900 ml 240 ml Results Result Diagram: 04/24/17 19004/24/17 1906 Results 24 hrs Laboratory Tests Test 04/24/17 12:05 04/24/17 17:24 04/24/17 19:06 04/24/17 19:57 Bedside Glucose 222 H 165 146 White Blood Count 8.3 Red Blood Count 2.85 L Hemoglobin 9.2 L Hematocrit 28.6 L Mean Corpuscular Volume 100.4 Mean Corpuscular Hemoglobin 32.3 Mean Corpuscular Hemoglobin Concent 32.2 Red Cell Distribution Width 13.3 Platelet Count 214 Mean Platelet Volume 10.4 Neutrophils % 52.5 Lymphocytes % 27.9 Monocytes % 15.3 H Eosinophils % 3.4 Basophils % 0.4 Nucleated Red Blood Cells % 0.0 Neutrophils # 4.4 Lymphocytes # 2.3 Monocytes # 1.3 H Eosinophils # 0.3 Basophils # 0.0 Nucleated Red Blood Cells # 0.0 Sodium Level 129 L Potassium Level 4.3 Chloride Level 96 L Carbon Dioxide Level 26 Anion Gap 11 Blood Urea Nitrogen 26 H Creatinine 1.02 H Glucose Level 140 Calcium Level 8.9 Test 04/25/17 08:33 Bedside Glucose 210 Medications Medications Current Medications Aspirin (Aspirin) 81 mg DAILY PO Last administered on 04/24/17 08:29; Admin Dose 81 MG; Start 04/20/17 at 09:00 Atorvastatin Calcium (Lipitor) 40 mg HS PO Last administered on 04/24/17 22: 22; Admin Dose 40 MG; Start 04/19/17 at 21:00 Metoprolol Tartrate (Lopressor) 25 mg BID PO Last administered on 04/24/17 22 :22; Admin Dose 25 MG; Start 04/19/17 at 21:00 Diagnostic Test (Pha) (Accu-Chek) 1 ea 02 XX Last administered on 04/24/17 02 :21; Admin Dose 1 EA; Start 04/20/17 at 02:00 Ascorbic Acid (Vitamin C) 500 mg DAILY PO Last administered on 04/24/17 08:30 ; Admin Dose 500 MG; Start 04/20/17 at 09:00 Cholecalciferol (Vitamin D) 2,000 unit DAILY PO Last administered on 08:31; Admin Dose 2,000 UNIT; Start 04/20/17 at 09:00 Cyanocobalamin (Vitamin B12) 1,000 mcg DAILY PO Last administered on 08:28; Admin Dose 1,000 MCG; Start 04/20/17 at 09:00 Docusate Sodium (Colace) 100 mg DAILY PO Last administered on 04/24/17 08:29 ; Admin Dose 100 MG; Start 04/20/17 at 09:00 Ferrous Sulfate (Ferrous Sulfate (Ec)) 325 mg TID PO Last administered on 04/24 22:22; Admin Dose 325 MG; Start 04/19/17 at 21:00 Folic Acid (Folic Acid) 1 mg DAILY PO Last administered on 04/24/17 08:30; Admin Dose 1 MG; Start 04/20/17 at 09:00 Memantine (Namenda) 10 mg BID PO Last administered on 04/24/17 22:23; Admin Dose 10 MG; Start 04/19/17 at 21:00 Multivitamins Therapeutic (Theragran) 1 tab DAILY PO Last administered on 04/24 08:28; Admin Dose 1 TAB; Start 04/20/17 at 09:00 Ondansetron HCl (Zofran Odt) 4 mg Q4H PRN ODT NAUSEA AND/OR VOMITING; Start at 13:00 Pantoprazole (Protonix Tab) 40 mg BID@,18 PO Last administered on 04/25/17 05:50; Admin Dose 40 MG; Start 04/19/17 at 18:00 Pramipexole (Mirapex) 0.125 mg TID PO Last administered on 04/24/17 22:22; Admin Dose 0.125 MG; Start 04/19/17 at 21:00 Pyridoxine HCl (Vitamin B6) 50 mg DAILY PO Last administered on 04/24/17 08: 28; Admin Dose 50 MG; Start 04/20/17 at 09:00 Rivastigmine Tartrate (Exelon) 3 mg BID PO Last administered on 04/24/17 22: 21; Admin Dose 3 MG; Start 04/19/17 at 21:00 Tramadol HCl (Ultram) 50 mg Q8H PRN PO PAIN Last administered on 04/22/17 22: 34; Admin Dose 50 MG; Start 04/19/17 at 13:00 Linagliptin (Tradjenta) 5 mg DAILY PO Last administered on 04/24/17 08:30; Admin Dose 5 MG; Start 04/20/17 at 09:00 Miscellaneous Information 1 ea NOTE XX ; Start 04/19/17 at 15:00 Glucose (Glutose) 15 gm Q15M PRN PO DECREASED GLUCOSE; Start 04/19/17 at 15:00 Glucose (Glutose) 22.5 gm Q15M PRN PO DECREASED GLUCOSE; Start 04/19/17 at 15: 00 Dextrose (D50w Syringe) 25 ml Q15M PRN IV DECREASED GLUCOSE; Start 04/19/17 at 15:00 Dextrose (D50w Syringe) 50 ml Q15M PRN IV DECREASED GLUCOSE; Start 04/19/17 at 15:00 Glucagon (Glucagen) 1 mg Q15M PRN IM DECREASED GLUCOSE; Start 04/19/17 at 15:00 Glucose (Glutose) 15 gm Q15M PRN BUCCAL DECREASED GLUCOSE; Start 04/19/17 at 15 :00 Lisinopril (Zestril) 5 mg DAILY PO Last administered on 04/24/17 08:32; Admin Dose 5 MG; Start 04/20/17 at 09:00 Lidocaine (Lidoderm) 1 patch DAILY@20 TD Last administered on 04/24/17 22:21 ; Admin Dose 1 PATCH; Start 04/21/17 at 20:00 Isosorbide Mononitrate (Imdur) 30 mg DAILY PO Last administered on 04/24/17 08:31; Admin Dose 30 MG; Start 04/22/17 at 09:00 REUBEN GERONIMO MD Apr 25, 2017 08:45
[2017-04-25] MEDS: FOLIC ACID 1 MG TAB PO SCH (08:49)
[2017-04-25] MEDS: ASCORBIC ACID 500 MG TAB PO SCH (08:49)
[2017-04-25] MEDS: MEMANTINE 10 MG TAB PO SCH ×2 (08:49→21:17)
[2017-04-25] MEDS: PRAMIPEXOLE 0.125 MG TAB PO SCH ×3 (08:49→21:17)
[2017-04-25] MEDS: RIVASTIGMINE 1.5 MG CAP PO SCH ×2 (08:49→21:16)
[2017-04-25] MEDS: MULTIVITAMINS THERAPEUTIC TAB PO SCH (08:49)
[2017-04-25] MEDS: PYRIDOXINE 50 MG TAB PO SCH (08:50)
[2017-04-25] MEDS: LINAGLIPTIN 5 MG TABLET PO SCH (08:50)
[2017-04-25] MEDS: FERROUS SULFATE (EC) 325 MG TAB PO SCH ×3 (08:50→21:17)
[2017-04-25] MEDS: CYANOCOBALAMIN 500 MCG TAB PO SCH (08:50)
[2017-04-25] MEDS: metFORMIN 500 MG TAB PO SCH ×2 (08:50→17:10)
[2017-04-25] MEDS: CHOLECALCIFEROL 1,000 UNIT TAB PO SCH (08:50)
[2017-04-25] MEDS: ASPIRIN 81 MG TAB PO SCH (08:50)
[2017-04-25] MEDS: DOCUSATE SODIUM 100 MG CAP PO SCH (08:51)
[2017-04-25] MEDS: LISINOPRIL 5 MG TAB PO SCH (08:51)
[2017-04-25] MEDS: METOPROLOL 25 MG TAB PO SCH ×2 (08:51→21:17)
[2017-04-25] MEDS: ISOSORBIDE MONONITRATE(SR)30 MG TAB PO SCH (10:19)
--- NOTE | 2017-04-25 11:28 | PN ---
Date/Time of Note Date/Time of Note DATE: 04/25/17 TIME: 11:26 Assessment/Plan VTE Prophylaxis VTE Prophylaxis Intervention: other Lines/Catheters [facility]ter Type [facility]from [facility]): [facility]ine [facility] Urinary Cath still in place: No Assessment/Plan Chief Complaint/Hosp Course SUBJECTIVE: The patient was seen by Dr. Zurita who given the patient's comorbidities and advanced age, recommended medical management. No other events noted. No hemoptysis, hematemesis or hematochezia. events were reviewed complaining of severe weakness seen by PT has hyponatremia and acute ARF OBJECTIVE: HEENT: Head is normocephalic. NECK: Supple. HEART: Regular rate. LUNGS: Show diminished breath sounds at the base. ABDOMEN: Soft, nontender to palpation. No rebound or guarding. EXTREMITIES: Negative for clubbing, cyanosis, edema. DERMATOLOGIC: No rashes. MUSCULOSKELETAL: No joint effusions. NEUROLOGIC: No change in exam. MEDICATIONS: Have been reviewed. ASSESSMENT AND PLAN: 1. Coronary artery disease status post cardiac catheterization. The patient was seen by CT surgery, no plans for coronary artery bypass graft at this time. Continue medical management and follow up with Cardiology. 2. Diabetes. will increase metformin. Continue current insulin regimen. 3. Hypertension. Continue lisinopril 4. History of chronic obstructive pulmonary disease. Continue to monitor. 5. Cognitive decline, dementia. Continue Namenda and Exelon patch. 6. Anemia. Continue to monitor hemoglobin and hematocrit levels. 7. hyponatremia and ARF: due to volume depletion. will give NS IVF continue PT/OT for debility dc planning in am if stable Problems: Exam/Review of Systems Vital Signs Vitals Vital Signs Date Time Temp Pulse Resp B/P Pulse Ox O2 Delivery O2 Flow Rate FiO2 04/25/17 11:20 97.4 59 17 130/63 96 Intake and Output 04/24/17 04/24/17 04/25/17 15:00 23:00 07:00 Intake Total 900 ml 240 ml Balance 900 ml 240 ml Results Result Diagram: 04/24/17 1906 04/24/17 1906 Results 24 hrs Laboratory Tests Test 04/24/17 12:05 04/24/17 17:24 04/24/17 19:06 04/24/17 19:57 Bedside Glucose 222 H 165 146 White Blood Count 8.3 Red Blood Count 2.85 L Hemoglobin 9.2 L Hematocrit 28.6 L Mean Corpuscular Volume 100.4 Mean Corpuscular Hemoglobin 32.3 Mean Corpuscular Hemoglobin Concent 32.2 Red Cell Distribution Width 13.3 Platelet Count 214 Mean Platelet Volume 10.4 Neutrophils % 52.5 Lymphocytes % 27.9 Monocytes % 15.3 H Eosinophils % 3.4 Basophils % 0.4 Nucleated Red Blood Cells % 0.0 Neutrophils # 4.4 Lymphocytes # 2.3 Monocytes # 1.3 H Eosinophils # 0.3 Basophils # 0.0 Nucleated Red Blood Cells # 0.0 Sodium Level 129 L Potassium Level 4.3 Chloride Level 96 L Carbon Dioxide Level 26 Anion Gap 11 Blood Urea Nitrogen 26 H Creatinine 1.02 H Glucose Level 140 Calcium Level 8.9 Test 04/25/17 08:33 Bedside Glucose 210 Medications Medications Current Medications Aspirin (Aspirin) 81 mg DAILY PO Last administered on 04/25/17 08:50; Admin Dose 81 MG; Start 04/20/17 at 09:00 Atorvastatin Calcium (Lipitor) 40 mg HS PO Last administered on 04/24/17 22: 22; Admin Dose 40 MG; Start 04/19/17 at 21:00 Metoprolol Tartrate (Lopressor) 25 mg BID PO Last administered on 04/25/17 08 :51; Admin Dose 25 MG; Start 04/19/17 at 21:00 Diagnostic Test (Pha) (Accu-Chek) 1 ea 02 XX Last administered on 04/24/17 02 :21; Admin Dose 1 EA; Start 04/20/17 at 02:00 Ascorbic Acid (Vitamin C) 500 mg DAILY PO Last administered on 04/25/17 08:49 ; Admin Dose 500 MG; Start 04/20/17 at 09:00 Cholecalciferol (Vitamin D) 2,000 unit DAILY PO Last administered on 08:50; Admin Dose 2,000 UNIT; Start 04/20/17 at 09:00 Cyanocobalamin (Vitamin B12) 1,000 mcg DAILY PO Last administered on 08:50; Admin Dose 1,000 MCG; Start 04/20/17 at 09:00 Docusate Sodium (Colace) 100 mg DAILY PO Last administered on 04/24/17 08:29 ; Admin Dose 100 MG; Start 04/20/17 at 09:00 Ferrous Sulfate (Ferrous Sulfate (Ec)) 325 mg TID PO Last administered on 04/25 08:50; Admin Dose 325 MG; Start 04/19/17 at 21:00 Folic Acid (Folic Acid) 1 mg DAILY PO Last administered on 04/25/17 08:49; Admin Dose 1 MG; Start 04/20/17 at 09:00 Memantine (Namenda) 10 mg BID PO Last administered on 04/25/17 08:49; Admin Dose 10 MG; Start 04/19/17 at 21:00 Multivitamins Therapeutic (Theragran) 1 tab DAILY PO Last administered on 04/25 08:49; Admin Dose 1 TAB; Start 04/20/17 at 09:00 Ondansetron HCl (Zofran Odt) 4 mg Q4H PRN ODT NAUSEA AND/OR VOMITING; Start at 13:00 Pantoprazole (Protonix Tab) 40 mg BID@,18 PO Last administered on 04/25/17 05:50; Admin Dose 40 MG; Start 04/19/17 at 18:00 Pramipexole (Mirapex) 0.125 mg TID PO Last administered on 04/25/17 08:49; Admin Dose 0.125 MG; Start 04/19/17 at 21:00 Pyridoxine HCl (Vitamin B6) 50 mg DAILY PO Last administered on 04/25/17 08: 50; Admin Dose 50 MG; Start 04/20/17 at 09:00 Rivastigmine Tartrate (Exelon) 3 mg BID PO Last administered on 04/25/17 08: 49; Admin Dose 3 MG; Start 04/19/17 at 21:00 Tramadol HCl (Ultram) 50 mg Q8H PRN PO PAIN Last administered on 04/22/17 22: 34; Admin Dose 50 MG; Start 04/19/17 at 13:00 Linagliptin (Tradjenta) 5 mg DAILY PO Last administered on 04/25/17 08:50; Admin Dose 5 MG; Start 04/20/17 at 09:00 Miscellaneous Information 1 ea NOTE XX ; Start 04/19/17 at 15:00 Glucose (Glutose) 15 gm Q15M PRN PO DECREASED GLUCOSE; Start 04/19/17 at 15:00 Glucose (Glutose) 22.5 gm Q15M PRN PO DECREASED GLUCOSE; Start 04/19/17 at 15: 00 Dextrose (D50w Syringe) 25 ml Q15M PRN IV DECREASED GLUCOSE; Start 04/19/17 at 15:00 Dextrose (D50w Syringe) 50 ml Q15M PRN IV DECREASED GLUCOSE; Start 04/19/17 at 15:00 Glucagon (Glucagen) 1 mg Q15M PRN IM DECREASED GLUCOSE; Start 04/19/17 at 15:00 Glucose (Glutose) 15 gm Q15M PRN BUCCAL DECREASED GLUCOSE; Start 04/19/17 at 15 :00 Lisinopril (Zestril) 5 mg DAILY PO Last administered on 04/25/17 08:51; Admin Dose 5 MG; Start 04/20/17 at 09:00 Lidocaine (Lidoderm) 1 patch DAILY@20 TD Last administered on 04/24/17 22:21 ; Admin Dose 1 PATCH; Start 04/21/17 at 20:00 Isosorbide Mononitrate (Imdur) 30 mg DAILY PO Last administered on 04/25/17 10:19; Admin Dose 30 MG; Start 04/22/17 at 09:00 ROSSI KELLY DO Apr 25, 2017 11:28
[2017-04-25] MEDS: POTASSIUM CHLORIDE 10 MEQ in SOD CHLORIDE 0.9% 1,000 ML IV SCH (12:35)
[2017-04-25] MEDS: LIDOCAINE 5% PATCH TD SCH (21:16)
[2017-04-25] MEDS: ATORVASTATIN 40 MG TAB PO SCH (21:16)
[2017-04-26] VITALS (13 sets, daily range): BP systolic 119–162; BP diastolic 58–72; PULSE 56–61; RESP 16–60
[2017-04-26] MEDS: POTASSIUM CHLORIDE 10 MEQ in SOD CHLORIDE 0.9% 1,000 ML IV SCH ×2 (01:33→15:45)
[2017-04-26] MEDS: ACCU-CHEK XX SCH (01:58)
[2017-04-26] MEDS: PANTOPRAZOLE (EC) 40 MG TAB PO SCH ×2 (05:57→17:51)
[2017-04-26 06:58] LABS: BASOPHILS % 0.5 % (0.0-2.0); EOSINOPHILS # 0.4 10^3/ul (0.0-0.5); EOSINOPHILS % 4.7 % (0.0-7.0); HEMOGLOBIN 8.6 g/dl (12.0-16.0); LYMPHOCYTES # 2.2 10^3/ul (0.8-2.9); LYMPHOCYTES % 27.2 % (15.0-51.0); MEAN CORPUSCULAR HEMOGLOBIN 31.9 pg (29.0-33.0); MEAN CORPUSCULAR HGB CONC 31.9 g/dl (32.0-37.0); MEAN PLATELET VOLUME 10.4 fl (7.4-10.4); MONOCYTE # 0.9 10^3/ul (0.3-0.9); MONOCYTES % 11.5 % (0.0-11.0); NEUTROPHIL # 4.4 10^3/ul (1.6-7.5); NEUTROPHILS % 55.5 % (39.0-77.0); PLATELET COUNT 225 10^3/UL (140-415); RED CELL DISTRIBUTION WIDTH 13.1 % (11.5-14.5); WHITE BLOOD COUNT 7.9 10^3/ul (4.8-10.8)
[2017-04-26 07:16] LABS: CALCIUM 8.6 mg/dl (8.4-10.2); CREATININE 0.97 mg/dl (0.44-1.00); MAGNESIUM 1.5 mg/dl (1.7-2.5); POTASSIUM 4.3 mmol/L (3.5-5.1)
[2017-04-26] MEDS: INSULIN ASPART [NOVOLOG] 3 ML PEN SC SCH ×4 (07:55→20:43)
[2017-04-26] MEDS: metFORMIN 500 MG TAB PO SCH ×2 (08:53→17:51)
[2017-04-26] MEDS: DOCUSATE SODIUM 100 MG CAP PO SCH (08:54)
[2017-04-26] MEDS: PYRIDOXINE 50 MG TAB PO SCH (08:55)
[2017-04-26] MEDS: MULTIVITAMINS THERAPEUTIC TAB PO SCH (08:55)
[2017-04-26] MEDS: PRAMIPEXOLE 0.125 MG TAB PO SCH ×3 (08:55→20:42)
[2017-04-26] MEDS: ASCORBIC ACID 500 MG TAB PO SCH (08:55)
[2017-04-26] MEDS: FOLIC ACID 1 MG TAB PO SCH (08:55)
[2017-04-26] MEDS: RIVASTIGMINE 1.5 MG CAP PO SCH ×2 (08:55→20:42)
[2017-04-26] MEDS: CYANOCOBALAMIN 500 MCG TAB PO SCH (08:55)
[2017-04-26] MEDS: FERROUS SULFATE (EC) 325 MG TAB PO SCH ×3 (08:55→20:42)
[2017-04-26] MEDS: MEMANTINE 10 MG TAB PO SCH ×2 (08:56→20:42)
[2017-04-26] MEDS: LINAGLIPTIN 5 MG TABLET PO SCH (08:56)
[2017-04-26] MEDS: CHOLECALCIFEROL 1,000 UNIT TAB PO SCH (08:56)
[2017-04-26] MEDS: ASPIRIN 81 MG TAB PO SCH (08:56)
[2017-04-26] MEDS: METOPROLOL 25 MG TAB PO SCH ×2 (08:57→20:43)
[2017-04-26] MEDS: LISINOPRIL 5 MG TAB PO SCH (08:57)
[2017-04-26] MEDS: ISOSORBIDE MONONITRATE(SR)30 MG TAB PO SCH (08:57)
--- NOTE | 2017-04-26 14:23 | CONS ---
Date/Time of Note Date/Time of Note DATE: 04/26/17 TIME: 14:22 Consult Date/Type/Reason Admit Date/Time Apr 19, 2017 at 11:48 Initial Consult Date 04/19/17 Type of Consultation: nephrology Ordering Provider: BRENT SINHA Subjective complaining of severe weakness seen by PT has hyponatremia and acute ARF OBJECTIVE: HEENT: Head is normocephalic. NECK: Supple. HEART: Regular rate. LUNGS: Show diminished breath sounds at the base. ABDOMEN: Soft, nontender to palpation. No rebound or guarding. EXTREMITIES: Negative for clubbing, cyanosis, edema. DERMATOLOGIC: No rashes. MUSCULOSKELETAL: No joint effusions. NEUROLOGIC: No change in exam. Objective Vital Signs Date Time Temp Pulse Resp B/P Pulse Ox O2 Delivery O2 Flow Rate FiO2 04/26/17 12:00 57 04/26/17 10:55 98.2 18 143/63 93 04/26/17 00:30 Room Air Intake and Output 04/25/17 04/25/17 04/26/17 15:00 23:00 07:00 Intake Total 1150 ml 1257 ml Balance 1150 ml 1257 ml Results/Medications Result Diagram: 04/26/17 0625 04/26/17 0625 Results 24 hrs Laboratory Tests Test 04/25/17 17:11 04/25/17 20:34 04/26/17 06:25 04/26/17 07:57 Bedside Glucose 193 94 133 White Blood Count 7.9 Red Blood Count 2.70 L Hemoglobin 8.6 L Hematocrit 27.0 L Mean Corpuscular Volume 100.0 Mean Corpuscular Hemoglobin 31.9 Mean Corpuscular Hemoglobin Concent 31.9 L Red Cell Distribution Width 13.1 Platelet Count 225 Mean Platelet Volume 10.4 Neutrophils % 55.5 Lymphocytes % 27.2 Monocytes % 11.5 H Eosinophils % 4.7 Basophils % 0.5 Nucleated Red Blood Cells % 0.0 Neutrophils # 4.4 Lymphocytes # 2.2 Monocytes # 0.9 Eosinophils # 0.4 Basophils # 0.0 Nucleated Red Blood Cells # 0.0 Sodium Level 130 L Potassium Level 4.3 Chloride Level 102 Carbon Dioxide Level 23 Anion Gap 9 Blood Urea Nitrogen 23 H Creatinine 0.97 Glucose Level 123 Calcium Level 8.6 Phosphorus Level 3.0 Magnesium Level 1.5 L Test 04/26/17 11:56 Bedside Glucose 174 Medications Current Medications Aspirin (Aspirin) 81 mg DAILY PO Last administered on 04/26/17 08:56; Admin Dose 81 MG; Start 04/20/17 at 09:00 Atorvastatin Calcium (Lipitor) 40 mg HS PO Last administered on 04/25/17 21: 16; Admin Dose 40 MG; Start 04/19/17 at 21:00 Metoprolol Tartrate (Lopressor) 25 mg BID PO Last administered on 04/26/17 08 :57; Admin Dose 25 MG; Start 04/19/17 at 21:00 Diagnostic Test (Pha) (Accu-Chek) 1 ea 02 XX Last administered on 04/24/17 02 :21; Admin Dose 1 EA; Start 04/20/17 at 02:00 Ascorbic Acid (Vitamin C) 500 mg DAILY PO Last administered on 04/26/17 08:55 ; Admin Dose 500 MG; Start 04/20/17 at 09:00 Cholecalciferol (Vitamin D) 2,000 unit DAILY PO Last administered on 08:56; Admin Dose 2,000 UNIT; Start 04/20/17 at 09:00 Cyanocobalamin (Vitamin B12) 1,000 mcg DAILY PO Last administered on 08:55; Admin Dose 1,000 MCG; Start 04/20/17 at 09:00 Docusate Sodium (Colace) 100 mg DAILY PO Last administered on 04/26/17 08:54 ; Admin Dose 100 MG; Start 04/20/17 at 09:00 Ferrous Sulfate (Ferrous Sulfate (Ec)) 325 mg TID PO Last administered on 04/26 12:18; Admin Dose 325 MG; Start 04/19/17 at 21:00 Folic Acid (Folic Acid) 1 mg DAILY PO Last administered on 04/26/17 08:55; Admin Dose 1 MG; Start 04/20/17 at 09:00 Memantine (Namenda) 10 mg BID PO Last administered on 04/26/17 08:56; Admin Dose 10 MG; Start 04/19/17 at 21:00 Multivitamins Therapeutic (Theragran) 1 tab DAILY PO Last administered on 04/26 08:55; Admin Dose 1 TAB; Start 04/20/17 at 09:00 Ondansetron HCl (Zofran Odt) 4 mg Q4H PRN ODT NAUSEA AND/OR VOMITING Last administered on 04/25/17 14:33; Admin Dose 4 MG; Start 04/19/17 at 13:00 Pantoprazole (Protonix Tab) 40 mg BID@,18 PO Last administered on 04/26/17 05:57; Admin Dose 40 MG; Start 04/19/17 at 18:00 Pramipexole (Mirapex) 0.125 mg TID PO Last administered on 04/26/17 12:18; Admin Dose 0.125 MG; Start 04/19/17 at 21:00 Pyridoxine HCl (Vitamin B6) 50 mg DAILY PO Last administered on 04/26/17 08: 55; Admin Dose 50 MG; Start 04/20/17 at 09:00 Rivastigmine Tartrate (Exelon) 3 mg BID PO Last administered on 04/26/17 08: 55; Admin Dose 3 MG; Start 04/19/17 at 21:00 Tramadol HCl (Ultram) 50 mg Q8H PRN PO PAIN Last administered on 04/22/17 22: 34; Admin Dose 50 MG; Start 04/19/17 at 13:00 Linagliptin (Tradjenta) 5 mg DAILY PO Last administered on 04/26/17 08:56; Admin Dose 5 MG; Start 04/20/17 at 09:00 Miscellaneous Information 1 ea NOTE XX ; Start 04/19/17 at 15:00 Glucose (Glutose) 15 gm Q15M PRN PO DECREASED GLUCOSE; Start 04/19/17 at 15:00 Glucose (Glutose) 22.5 gm Q15M PRN PO DECREASED GLUCOSE; Start 04/19/17 at 15: 00 Dextrose (D50w Syringe) 25 ml Q15M PRN IV DECREASED GLUCOSE; Start 04/19/17 at 15:00 Dextrose (D50w Syringe) 50 ml Q15M PRN IV DECREASED GLUCOSE; Start 04/19/17 at 15:00 Glucagon (Glucagen) 1 mg Q15M PRN IM DECREASED GLUCOSE; Start 04/19/17 at 15:00 Glucose (Glutose) 15 gm Q15M PRN BUCCAL DECREASED GLUCOSE; Start 04/19/17 at 15 :00 Lisinopril (Zestril) 5 mg DAILY PO Last administered on 04/26/17 08:57; Admin Dose 5 MG; Start 04/20/17 at 09:00 Lidocaine (Lidoderm) 1 patch DAILY@20 TD Last administered on 04/25/17 21:16 ; Admin Dose 1 PATCH; Start 04/21/17 at 20:00 Isosorbide Mononitrate 30 mg 30 mg DAILY PO Last administered on 04/26/17 08: 57; Admin Dose 30 MG; Start 04/22/17 at 09:00 Potassium Chloride/Sodium Chloride (KCl/NS) 1,005 ml @ 75 mls/hr [id number] IV Last administered on 04/26/17 01:33; Admin Dose 75 MLS/HR; Start 04/25/17 at 11:30 Assessment/Plan Chief Complaint/Hosp Course ASSESSMENT AND PLAN: 1. Coronary artery disease status post cardiac catheterization. The patient was seen by CT surgery, no plans for coronary artery bypass graft at this time. Continue medical management and follow up with Cardiology. 2. Diabetes. will increase metformin. Continue current insulin regimen. 3. Hypertension. Continue lisinopril 4. History of chronic obstructive pulmonary disease. Continue to monitor. 5. Cognitive decline, dementia. Continue Namenda and Exelon patch. 6. Anemia. Continue to monitor hemoglobin and hematocrit levels. slight decrease noted, watch 1 more day 7. hyponatremia and ARF: due to volume depletion. will give NS IVF continue PT/OT for debility dc planning in am if stable and h/h stable. Problems: LALITHA MCGEE MD Apr 26, 2017 14:23
--- NOTE | 2017-04-26 14:56 | PN ---
Date/Time of Note Date/Time of Note DATE: 04/26/17 TIME: 14:56 Assessment/Plan VTE Prophylaxis VTE Prophylaxis Intervention: SCD's Lines/Catheters IV Catheter Type (from [facility]): Saline Lock Urinary Cath still in place: No Assessment/Plan Assessment/Plan NSTEMI CAD with significant ostial LM, ostial Cx and mid RCA stenosis requiring CABG DM HTN CKD: Cr 1.2 ANEMAI OBS -evaluated by CTS > reccomended medical therapy -contineu cv meds -spokewith her daughter -most sousa will treat medcailly and only consider high risk PCI with assist device at a tertiary facility if fails med therapy Subjective 24 Hr Interval Summary Free Text/Dictation The aptient with no chest pain Exam/Review of Systems Vital Signs Vitals Vital Signs Date Time Temp Pulse Resp B/P Pulse Ox O2 Delivery O2 Flow Rate FiO2 04/26/17 12:00 57 04/26/17 10:55 98.2 18 143/63 93 04/26/17 00:30 Room Air Intake and Output 04/25/17 04/25/17 04/26/17 15:00 23:00 07:00 Intake Total 1150 ml 1257 ml Balance 1150 ml 1257 ml Results Result Diagram: 04/26/17 0625 04/26/17 0625 Results 24 hrs Laboratory Tests Test 04/25/17 17:11 04/25/17 20:34 04/26/17 06:25 04/26/17 07:57 Bedside Glucose 193 94 133 White Blood Count 7.9 Red Blood Count 2.70 L Hemoglobin 8.6 L Hematocrit 27.0 L Mean Corpuscular Volume 100.0 Mean Corpuscular Hemoglobin 31.9 Mean Corpuscular Hemoglobin Concent 31.9 L Red Cell Distribution Width 13.1 Platelet Count 225 Mean Platelet Volume 10.4 Neutrophils % 55.5 Lymphocytes % 27.2 Monocytes % 11.5 H Eosinophils % 4.7 Basophils % 0.5 Nucleated Red Blood Cells % 0.0 Neutrophils # 4.4 Lymphocytes # 2.2 Monocytes # 0.9 Eosinophils # 0.4 Basophils # 0.0 Nucleated Red Blood Cells # 0.0 Sodium Level 130 L Potassium Level 4.3 Chloride Level 102 Carbon Dioxide Level 23 Anion Gap 9 Blood Urea Nitrogen 23 H Creatinine 0.97 Glucose Level 123 Calcium Level 8.6 Phosphorus Level 3.0 Magnesium Level 1.5 L Test 04/26/17 11:56 Bedside Glucose 174 Medications Medications Current Medications Aspirin (Aspirin) 81 mg DAILY PO Last administered on 04/26/17 08:56; Admin Dose 81 MG; Start 04/20/17 at 09:00 Atorvastatin Calcium (Lipitor) 40 mg HS PO Last administered on 04/25/17 21: 16; Admin Dose 40 MG; Start 04/19/17 at 21:00 Metoprolol Tartrate (Lopressor) 25 mg BID PO Last administered on 04/26/17 08 :57; Admin Dose 25 MG; Start 04/19/17 at 21:00 Diagnostic Test (Pha) (Accu-Chek) 1 ea 02 XX Last administered on 04/24/17 02 :21; Admin Dose 1 EA; Start 04/20/17 at 02:00 Ascorbic Acid (Vitamin C) 500 mg DAILY PO Last administered on 04/26/17 08:55 ; Admin Dose 500 MG; Start 04/20/17 at 09:00 Cholecalciferol (Vitamin D) 2,000 unit DAILY PO Last administered on 08:56; Admin Dose 2,000 UNIT; Start 04/20/17 at 09:00 Cyanocobalamin (Vitamin B12) 1,000 mcg DAILY PO Last administered on 08:55; Admin Dose 1,000 MCG; Start 04/20/17 at 09:00 Docusate Sodium (Colace) 100 mg DAILY PO Last administered on 04/26/17 08:54 ; Admin Dose 100 MG; Start 04/20/17 at 09:00 Ferrous Sulfate (Ferrous Sulfate (Ec)) 325 mg TID PO Last administered on 04/26 12:18; Admin Dose 325 MG; Start 04/19/17 at 21:00 Folic Acid (Folic Acid) 1 mg DAILY PO Last administered on 04/26/17 08:55; Admin Dose 1 MG; Start 04/20/17 at 09:00 Memantine (Namenda) 10 mg BID PO Last administered on 04/26/17 08:56; Admin Dose 10 MG; Start 04/19/17 at 21:00 Multivitamins Therapeutic (Theragran) 1 tab DAILY PO Last administered on 04/26 08:55; Admin Dose 1 TAB; Start 04/20/17 at 09:00 Ondansetron HCl (Zofran Odt) 4 mg Q4H PRN ODT NAUSEA AND/OR VOMITING Last administered on 04/25/17 14:33; Admin Dose 4 MG; Start 04/19/17 at 13:00 Pantoprazole (Protonix Tab) 40 mg BID@,18 PO Last administered on 04/26/17 05:57; Admin Dose 40 MG; Start 04/19/17 at 18:00 Pramipexole (Mirapex) 0.125 mg TID PO Last administered on 04/26/17 12:18; Admin Dose 0.125 MG; Start 04/19/17 at 21:00 Pyridoxine HCl (Vitamin B6) 50 mg DAILY PO Last administered on 04/26/17 08: 55; Admin Dose 50 MG; Start 04/20/17 at 09:00 Rivastigmine Tartrate (Exelon) 3 mg BID PO Last administered on 04/26/17 08: 55; Admin Dose 3 MG; Start 04/19/17 at 21:00 Tramadol HCl (Ultram) 50 mg Q8H PRN PO PAIN Last administered on 04/22/17 22: 34; Admin Dose 50 MG; Start 04/19/17 at 13:00 Linagliptin (Tradjenta) 5 mg DAILY PO Last administered on 04/26/17 08:56; Admin Dose 5 MG; Start 04/20/17 at 09:00 Miscellaneous Information 1 ea NOTE XX ; Start 04/19/17 at 15:00 Glucose (Glutose) 15 gm Q15M PRN PO DECREASED GLUCOSE; Start 04/19/17 at 15:00 Glucose (Glutose) 22.5 gm Q15M PRN PO DECREASED GLUCOSE; Start 04/19/17 at 15: 00 Dextrose (D50w Syringe) 25 ml Q15M PRN IV DECREASED GLUCOSE; Start 04/19/17 at 15:00 Dextrose (D50w Syringe) 50 ml Q15M PRN IV DECREASED GLUCOSE; Start 04/19/17 at 15:00 Glucagon (Glucagen) 1 mg Q15M PRN IM DECREASED GLUCOSE; Start 04/19/17 at 15:00 Glucose (Glutose) 15 gm Q15M PRN BUCCAL DECREASED GLUCOSE; Start 04/19/17 at 15 :00 Lisinopril (Zestril) 5 mg DAILY PO Last administered on 04/26/17 08:57; Admin Dose 5 MG; Start 04/20/17 at 09:00 Lidocaine (Lidoderm) 1 patch DAILY@20 TD Last administered on 04/25/17 21:16 ; Admin Dose 1 PATCH; Start 04/21/17 at 20:00 Isosorbide Mononitrate 30 mg 30 mg DAILY PO Last administered on 04/26/17 08: 57; Admin Dose 30 MG; Start 04/22/17 at 09:00 Potassium Chloride/Sodium Chloride (KCl/NS) 1,005 ml @ 75 mls/hr [id number] IV Last administered on 04/26/17 01:33; Admin Dose 75 MLS/HR; Start 04/25/17 at 11:30 REUBEN GERONIMO MD Apr 26, 2017 14:56
[2017-04-26] MEDS ORDERED: MAGNESIUM SULFATE 1 GM/D5W 100 ML IVPB ONE (15:30)
[2017-04-26] MEDS: ATORVASTATIN 40 MG TAB PO SCH (20:42)
[2017-04-26] MEDS: LIDOCAINE 5% PATCH TD SCH (20:42)
[2017-04-27] VITALS (8 sets, daily range): BP systolic 133–170; BP diastolic 62–73; PULSE 56–63; RESP 16
[2017-04-27] MEDS: ACCU-CHEK XX SCH (02:00)
[2017-04-27] MEDS: PANTOPRAZOLE (EC) 40 MG TAB PO SCH (06:22)
[2017-04-27] MEDS: POTASSIUM CHLORIDE 10 MEQ in SOD CHLORIDE 0.9% 1,000 ML IV SCH (06:22)
[2017-04-27] MEDS: INSULIN ASPART [NOVOLOG] 3 ML PEN SC SCH ×2 (07:55→12:37)
[2017-04-27] MEDS: metFORMIN 500 MG TAB PO SCH (08:40)
[2017-04-27] MEDS: ASPIRIN 81 MG TAB PO SCH (08:40)
[2017-04-27] MEDS: MEMANTINE 10 MG TAB PO SCH (08:40)
[2017-04-27] MEDS: LINAGLIPTIN 5 MG TABLET PO SCH (08:41)
[2017-04-27] MEDS: RIVASTIGMINE 1.5 MG CAP PO SCH (08:41)
[2017-04-27] MEDS: METOPROLOL 25 MG TAB PO SCH (08:42)
[2017-04-27] MEDS: LISINOPRIL 5 MG TAB PO SCH (08:43)
[2017-04-27] MEDS: CHOLECALCIFEROL 1,000 UNIT TAB PO SCH (08:45)
[2017-04-27] MEDS: CYANOCOBALAMIN 500 MCG TAB PO SCH (08:45)
[2017-04-27] MEDS: ASCORBIC ACID 500 MG TAB PO SCH (08:46)
[2017-04-27] MEDS: FOLIC ACID 1 MG TAB PO SCH (08:46)
[2017-04-27] MEDS: DOCUSATE SODIUM 100 MG CAP PO SCH (08:46)
[2017-04-27] MEDS: FERROUS SULFATE (EC) 325 MG TAB PO SCH ×2 (08:46→13:00)
[2017-04-27] MEDS: ISOSORBIDE MONONITRATE(SR)30 MG TAB PO SCH (08:47)
[2017-04-27] MEDS: PRAMIPEXOLE 0.125 MG TAB PO SCH ×2 (08:47→13:00)
[2017-04-27] MEDS: MULTIVITAMINS THERAPEUTIC TAB PO SCH (08:47)
[2017-04-27] MEDS: PYRIDOXINE 50 MG TAB PO SCH (08:47)
[2017-04-27] MEDS ORDERED: ISOS30TA5 PO (10:47)
[2017-04-27] MEDS ORDERED: ATOR40TA68 PO (10:47)
[2017-04-27] MEDS ORDERED: LISI-313 PO (10:47)
[2017-04-27] MEDS ORDERED: METF500T PO (10:47)
[2017-04-27] MEDS ORDERED: METO-448 PO (10:47)
--- NOTE | 2017-04-27 10:49 | DS ---
Date/Time of Note Date/Time of Note DATE: 04/27/17 TIME: 10:48 Discharge Summary Admission/Discharge Info Admit Date/Time Apr 19, 2017 at 11:48 Discharge Date/Time Hx of Present Illness 1. Coronary artery disease status post cardiac catheterization. The patient was seen by CT surgery, no plans for coronary artery bypass graft at this time. Continue medical management and follow up with Cardiology. 2. Diabetes. will increase metformin. Continue current insulin regimen. 3. Hypertension. Continue lisinopril 4. History of chronic obstructive pulmonary disease. Continue to monitor. 5. Cognitive decline, dementia. Continue Namenda and Exelon patch. 6. Anemia. Continue to monitor hemoglobin and hematocrit levels. 7. hyponatremia and ARF: due to volume depletion pt. needs gel padding for incontinence [facility] Course ASSESSMENT AND PLAN: 1. Coronary artery disease status post cardiac catheterization. The patient was seen by CT surgery, no plans for coronary artery bypass graft at this time. Continue medical management and follow up with Cardiology. 2. Diabetes. will increase metformin. Continue current insulin regimen. 3. Hypertension. Continue lisinopril 4. History of chronic obstructive pulmonary disease. Continue to monitor. 5. Cognitive decline, dementia. Continue Namenda and Exelon patch. 6. Anemia. Continue to monitor hemoglobin and hematocrit levels. slight decrease noted, watch 1 more day 7. hyponatremia and ARF: due to volume depletion. will give NS IVF continue PT/OT for debility dc planning in am if stable and h/h stable. Home Meds Active Scripts Ciprofloxacin Hcl* (Ciprofloxacin Hcl*) 500 Mg Tablet, 500 MG PO BID for 5 Days , #10 TAB Prov:DEBBIE TORO 02/03/16 Ondansetron Hcl* (Zofran* ODT) 4 mg -ODT Tab.disper, 4 MG PO Q4H Y for NAUSEA AND OR VOMITING, #10 TAB Prov:FABIAN POWERS DO 03/28/15 Docusate Sodium* (Colace*) 100 Mg Capsule, 100 MG PO BID for 30 Days, CAP Prov:NASIR HARDING 06/04/14 Pantoprazole (Protonix) 40 Mg Tabec, 40 MG PO BID for 30 Days, TAB 0 Refills Prov:NASIR HARDING 06/04/14 Reported Medications Glipizide* (Glipizide*) 10 Mg Tablet, 10 MG PO BID, TAB 01/30/16 Cranberry (Cranberry) 400 Mg Capsule, 400 MG PO DAILY, CAP 03/28/15 Docusate Sodium* (Docusate Sodium*) 100 Mg Capsule, 100 MG PO DAILY, CAP 03/28/15 Tramadol HCl (Tramadol HCl) 50 Mg Tab, 50 MG PO Q8H Y for PAIN, TAB 03/28/15 Ubidecarenone (Coq-10) 100 Mg Capsule, 100 MG PO DAILY 06/01/14 Sitagliptin* (Januvia*) 100 Mg Tablet, 100 MG PO DAILY, TAB 06/01/14 Metformin* (Glucophage*) 1,000 Mg Tablet, 1000 MG PO BID, TAB 06/01/14 Carvedilol* (Carvedilol*) 6.25 Mg Tablet, 6.25 MG PO BID 08/30/12 Aspirin (Aspir-Low) 81 Mg Tablet.dr, 81 MG PO DAILY 10/08/11 Ferrous Sulfate* (Ferrous Sulfate*) 325 Mg Tablet, 325 MG PO TID 10/08/11 Lovastatin (Lovastatin) 40 Mg Tablet, 40 MG PO DAILY 10/08/11 Benazepril Hcl* (Benazepril Hcl*) 40 Mg Tablet, 40 MG PO DAILY 10/08/11 Multivitamins* (Multivitamins*) 1 Tab Tablet, 1 TAB PO DAILY 10/08/11 Pramipexole* (Mirapex*) 0.125 Mg Tablet, 0.125 MG PO TID 10/08/11 Cholecalciferol* (Vitamin D3*) 1,000 Unit Tablet, 2000 UNIT PO DAILY 10/08/11 Ascorbic Acid (Vitamin C) 500 Mg Tablet, 500 MG PO DAILY 10/08/11 Pyridoxine Hcl* (Pyridoxine Hcl*) 50 Mg Tablet, 50 MG PO DAILY 10/08/11 Folic Acid* (Folic Acid*) 1 Mg Tablet, 1 MG PO DAILY 10/08/11 Cyanocobalamin* (Vitamin B12*) 500 Mcg Tab, 1000 MCG PO DAILY 10/08/11 Memantine* (Namenda*) 10 Mg Tablet, 10 MG PO BID 10/08/11 Rivastigmine Tartrate* (Exelon*) 3 Mg Capsule, 3 MG PO BID 10/08/11 Primary Care Provider Shahbaz Radford MD Time spent on discharge: < 30 minutes Pending Labs Laboratory Tests Test 04/26/17 11:56 04/26/17 17:44 04/26/17 20:40 04/27/17 08:01 Bedside Glucose 174mg/dL (70-220) 142mg/dL (70-220) 131mg/dL (70-220) 138mg/dL (70-220) LALITHA MCGEE MD Apr 27, 2017 10:49
--- NOTE | 2017-04-27 17:53 | PN ---
Date/Time of Note Date/Time of Note DATE: 04/27/17 TIME: 17:50 Assessment/Plan VTE Prophylaxis VTE Prophylaxis Intervention: SCD's Lines/Catheters IV Catheter Type (from Nrs): Peripheral IV Urinary Cath still in place: No Assessment/Plan Assessment/Plan NSTEMI CAD with significant ostial LM, ostial Cx and mid RCA stenosis requiring CABG DM HTN CKD: Cr 1.2 ANEMAI OBS -evaluated by CTS > reccomended medical therapy -contineu cv meds -spokewith her daughter -most sousa will treat medcailly and only consider high risk PCI with assist device at a tertiary facility if fails med therapy Subjective 24 Hr Interval Summary Free Text/Dictation the patietn with no change Exam/Review of Systems Vital Signs Vitals Vital Signs Date Time Temp Pulse Resp B/P Pulse Ox O2 Delivery O2 Flow Rate FiO2 04/27/17 12:07 63 04/27/17 11:42 97.8 16 146/68 97 04/26/17 00:30 Room Air Intake and Output 04/26/17 04/26/17 04/27/17 15:00 23:00 07:00 Intake Total 1175 ml 2200 ml Balance 1175 ml 2200 ml Results Result Diagram: 04/26/17 0625 04/26/17 0625 Results 24 hrs Laboratory Tests Test 04/26/17 20:40 04/27/17 08:01 04/27/17 12:32 Bedside Glucose 131 138 155 REUBEN GERONIMO MD Apr 27, 2017 17:52
== END 2017-04-27 15:45 | disposition home health service (06) | DRG 281 ==
LOC: SDS 09:00 → CCL 09:00 → TEL 11:48 → SDS 11:48 → TEL 14:41
PROVIDERS: ADMIT Internal Medicine; ATTEND Internal Medicine
PROC: B215YZZ Fluoroscopy of Left Heart using Other Contrast (ICD-10-PCS; 2017-04-19)
PROC: 4A023N7 Measurement of Cardiac Sampling and Pressure, Left Heart, Percutaneous Approach (ICD-10-PCS; principal; 2017-04-19 11:00)
DX: I21.4 Non-ST elevation (NSTEMI) myocardial infarction (principal); E87.1 Hypo-osmolality and hyponatremia; E11.22 Type 2 diabetes mellitus with diabetic chronic kidney disease; J44.9 Chronic obstructive pulmonary disease, unspecified; E83.42 Hypomagnesemia; F03.90 Unspecified dementia, unspecified severity, without behavioral disturbance, psychotic disturbance, mood disturbance, and anxiety; E78.5 Hyperlipidemia, unspecified; I10 Essential (primary) hypertension; I12.9 Hypertensive chronic kidney disease with stage 1 through stage 4 chronic kidney disease, or unspecified chronic kidney disease; N18.9 Chronic kidney disease, unspecified; I25.10 Atherosclerotic heart disease of native coronary artery without angina pectoris; D64.9 Anemia, unspecified
CPT/HCPCS: 80048; 81001; 81003; 82043; 82270; 82962; 83735; 84100; 84155; 84300; 85025; 87075; 87081; 93306; 93458; 93880; 93971; 97110; 97116; 97161; 97530; C1887; J1644; J1815; J2250; J3010; J3475; J3480; J7030

== ENCOUNTER 2017-08-21 09:08 | Inpatient (IN) | END 2017-08-24 15:44 | disposition home or self-care (01) | DRG 871 ==

== ENCOUNTER 2017-12-21 22:51 | Emergency (ER) | END 2017-12-22 04:20 | disposition home or self-care (01) ==

== ENCOUNTER 2018-01-13 14:17 | Inpatient (IN) | END 2018-01-21 21:10 | disposition home health service (06) | DRG 690 ==

== ENCOUNTER 2018-03-30 08:50 | Inpatient (IN) | END 2018-04-16 20:14 | DRG 481 ==

== ENCOUNTER 2018-04-16 20:20 | Inpatient (IN) | END 2018-05-03 11:15 | disposition home health service (06) | DRG 560 ==

== ENCOUNTER 2018-05-12 20:40 | Inpatient (IN) | END 2018-05-17 22:30 | disposition home health service (06) | DRG 871 ==